=== PATIENT | female | born 1930 | race Caucasian/White ===

== ENCOUNTER 2016-07-30 11:59 | Emergency (ER) | payer MEDICARE ==
[2016-07-30 12:07] VITALS: PULSE 78
[2016-07-30] MEDS ORDERED: SODIUM CHLORIDE 0.9% 1,000 ML IV STA (12:56)
[2016-07-30 14:04] LABS: Anion Gap 11 mmol/L; Calcium 9.3 mg/dL (8.4-10.2); Carbon Dioxide 24 mmol/L (22-30); Chloride 102 mmol/L (98-107); Glucose 92 mg/dL (74-99); Non-African American GFR(MDRD) >60 (>60 ml/min/1.73 sqM); Sodium 137 mmol/L (137-145); Total Bilirubin 0.6 mg/dL (0.2-1.3); Total Protein 7.4 g/dL (6.3-8.2)
[2016-07-30 14:07] LABS: AST 43 U/L (14-36); Blood Urea Nitrogen 14 mg/dL (7-17); Potassium 4.4 mmol/L (3.5-5.1)
[2016-07-30 14:08] LABS: ALT 25 U/L (9-52); Alkaline Phosphatase 63 U/L (38-126)
--- NOTE | 2016-07-30 14:08 | XR ---
EXAMINATION TYPE: XR chest 2V DATE OF EXAM: 07/30/2016 2:03 PM COMPARISON: 05/03/2016 HISTORY: Cough TECHNIQUE: Frontal and lateral views of the chest are obtained. FINDINGS: There is no heart failure nor confluent pneumonic infiltrate. There is slight coarsening o f interstitial markings. There are no hilar masses. Costophrenic angles are clear. Thoracic aorta is atheromatous. Bony thorax is intact. IMPRESSION: No active cardiopulmonary disease. Minimal fibrotic changes. No adverse change compared to old exam.
[2016-07-30 14:11] LABS: Partial Thromboplastin Time 23.8 sec (22.0-30.0); Prothrombin Time 10.2 sec (9.0-12.0)
[2016-07-30 14:15] LABS: Basophils % (A) 0 %; CH 30.2; CHCM 32.9; Eosinophils % (A) 0 %; HCT 38.8 % (34.0-46.0); HDW 2.53; HGB 12.7 gm/dL (11.4-16.0); Luc # (Auto) 0.14; Luc % (Auto) 4; Lymphocytes # (A) 0.8 k/uL (1.0-4.8); Lymphocytes % (A) 22 %; MCH 30.1 pg (25.0-35.0); MCHC 32.6 g/dL (31.0-37.0); MCV 92.3 fL (80.0-100.0); Mean Platelet Volume 7.5; Monocytes # (A) 0.3 k/uL (0-1.0); Monocytes % (A) 8 %; Neutrophils # (A) 2.3 k/uL (1.3-7.7); Neutrophils % (A) 66 %; RBC 4.21 m/uL (3.80-5.40); WBC 3.5 k/uL (3.8-10.6); WBC (Perox) 3.55
[2016-07-30 14:17] LABS: Creatine Kinase 95 U/L (30-135)
[2016-07-30 14:30] LABS: Creatine Kinase MB 1.3 ng/mL (0.0-2.4); Troponin I <0.012 ng/mL (0.000-0.034)
--- NOTE | 2016-07-30 16:07 | ED ---
SOB HPI - General Chief Complaint: Shortness of Breath Stated Complaint: Diff breathing Time Seen by Provider: 07/30/16 12:32 Source: patient Mode of arrival: wheelchair Limitations: no limitations - History of Present Illness Initial Comments: He lives at a [facility] where it's not a quite full fledged [facility] is more like independent living with the some help with the medications as well as with the food she been coughing for the last 5 days she had a course of Zithromax she just finished that she is bringing up some phlegm she also had some diarrhea she is not the best historian considering she has a history of dementia her daughter is her review of system as well as history personnel. She denies any chest pain denies any pleuritic chest pain does have cough and does bring up some phlegm no abdominal pain no frequency urgency dysuria she did notice some diarrhea for the last few days he was on antibiotics recently - Related Data Home Medications Medication Instructions Recorded Confirmed Atorvastatin [Lipitor] 10 mg PO HS 05/02/16 07/30/16 diphenhydrAMINE [Benadryl] 25 mg PO HS 05/02/16 07/30/16 Acetaminophen Tab [Tylenol Tab] 650 mg PO Q6H PRN 07/30/16 07/30/16 Azithromycin [Zithromax Z-pack] See Taper PO DAILY 07/30/16 07/30/16 Clotrimazole/Betamethasone Dip 1 applic TOPICAL DAILY 07/30/16 07/30/16 [Lotrisone Cream] Fexofenadine HCl [Violette Allergy] 180 mg PO DAILY 07/30/16 07/30/16 Fluticasone Nasal [place] [Flonase 1 spray EA NOSTRIL DAILY 07/30/16 07/30/16 Nasal [place]] Omeprazole [PriLOSEC] 20 mg PO DAILY 07/30/16 07/30/16 Previous Rx's Medication Instructions Recorded Clopidogrel [Plavix] 75 mg PO DAILY tab 03/28/16 Oseltamivir [Tamiflu] 75 mg PO Q12HR #10 cap 07/30/16 Allergies Allergy/AdvReac Type Severity Reaction Status Date / Time codeine Allergy Unknown Verified 07/30/16 12:36 ibuprofen [From Motrin] Allergy Unknown Verified 07/30/16 12:36 Penicillins Allergy Unknown Verified 07/30/16 12:36 sulfamethoxazole AdvReac Nausea & Verified 07/30/16 12:36 [From Bactrim] Vomiting trimethoprim [From Bactrim] AdvReac Nausea & Verified 07/30/16 12:36 Vomiting Review of Systems ROS Statement: Those systems with pertinent positive or pertinent negative responses have been documented in the HPI. ROS Other: All systems not noted in ROS Statement are negative. Past Medical History Past Medical History: Coronary Artery Disease (CAD), Chest Pain / Angina, Dementia, GERD/Reflux, Hearing Disorder / Deafness, Hyperlipidemia, Hypertension , Memory Impairment Additional Past Medical History / Comment(s): [employer]- bilateral hearing aides History of Any Multi-Drug Resistant Organisms: None Reported Past Surgical History: Bladder Surgery, Cholecystectomy, Ear Surgery, Heart Catheterization With Stent, Hysterectomy, Joint Replacement Additional Past Surgical History / Comment(s): bony knee, right shoulder Past Anesthesia/Blood Transfusion Reactions: Previous Problems w/ Anesthesia Additional Past Anesthesia/Blood Transfusion Reaction / Comment(s): poor reaction during last surgery Date of Last Stent Placement:: 2005 Past Psychological History: No Psychological Hx Reported Smoking Status: Former smoker Past Alcohol Use History: None Reported Past Drug Use History: None Reported - Past Family History Mother Family Medical History: CVA/TIA Father Family Medical History: Myocardial Infarction ([place]) Brother(s) Family Medical History: Myocardial Infarction ([place]) General Exam - General Exam Comments Initial Comments: General: The patient is awake and alert, in no distress, and does not appear acutely ill. Skin: Skin is warm and dry and no rashes or lesions are noted. Eye: Pupils are equal, round and reactive to light, extra-ocular movements are intact; there is normal conjunctiva bilaterally. Ears, nose, mouth and throat: There are moist mucous membranes and no oral lesions. Neck: The neck is supple, there is no tenderness or JVD. Cardiovascular: There is a regular rate and rhythm. No murmur, rub or gallop is appreciated. Respiratory: To auscultation noticed some crackles at the bases bilateral Gastrointestinal: Soft, non-distended, non-tender abdomen without masses or organomegaly noted. There is no rebound or guarding present. Bowel sounds are unremarkable. Back: There is no tenderness to palpation in the midline. There is no obvious deformity. Musculoskeletal: Normal ROM, no tenderness, There is no pedal edema. There is no calf tenderness or swelling. No cords were appreciated. Neurological: CN II-XII intact, Cranial nerves III through XII are intact. There are no obvious motor or sensory deficits. Coordination appears grossly intact. Speech is normal. Psychiatric: Cooperative, appropriate mood & affect, normal judgment. Limitations: no limitations Course Vital Signs 07/30/16 12:05 Temperature 98.1 F Pulse Rate 78 Respiratory 20 Rate Blood Pressure 132/67 O2 Sat by Pulse 92 L Oximetry Him EKG showed normal sinus rhythm she is ventricular rate of 86 CT interval is 180 QRS duration is 82 QT/QTc is 388/464 of this EKG did not show any ST elevation or ST depression - Reevaluation(s) Reevaluation #1: 07/30/16 16:06 She was reassessed at 1600 with a discussed her labs with the family her, CBC, CMP, troponin, EKG, chest x-ray are normal she does have a influenza she be given Tamiflu 75 mg twice daily for next 5 days then she will follow-up with family doctor Medical Decision Making - Lab Data Result diagrams: 07/30/16 13:36 07/30/16 13:36 Lab Results 07/30/16 07/30/16 07/30/16 Range/Units 13:36 13:36 13:36 WBC 3.5 L (3.8-10.6) k/uL RBC 4.21 (3.80-5.40) m/uL Hgb 12.7 (11.4-16.0) gm/dL Hct 38.8 (34.0-46.0) % MCV 92.3 (80.0-100.0) fL MCH 30.1 (25.0-35.0) pg MCHC 32.6 (31.0-37.0) g/dL RDW 13.0 (11.5-15.5) % Plt Count 193 (150-450) k/uL Neutrophils % 66 % Lymphocytes % 22 % Monocytes % 8 % Eosinophils % 0 % Basophils % 0 % Neutrophils # 2.3 (1.3-7.7) k/uL Lymphocytes # 0.8 L (1.0-4.8) k/uL Monocytes # 0.3 (0-1.0) k/uL Eosinophils # 0.0 (0-0.7) k/uL Basophils # 0.0 (0-0.2) k/uL PT (9.0-12.0) sec INR (<1.1) APTT (22.0-30.0) sec Sodium 137 (137-145) mmol/L Potassium 4.4 (3.5-5.1) mmol/L Chloride 102 (98-107) mmol/L Carbon Dioxide 24 (22-30) mmol/L Anion Gap 11 mmol/L BUN 14 (7-17) mg/dL Creatinine 0.60 (0.52-1.04) mg/dL Est GFR (MDRD) Af Amer >60 (>60 ml/min/1.73 sqM) Est GFR (MDRD) Non-Af >60 (>60 ml/min/1.73 sqM) Glucose 92 (74-99) mg/dL Calcium 9.3 (8.4-10.2) mg/dL Total Bilirubin 0.6 (0.2-1.3) mg/dL AST 43 H (14-36) U/L ALT 25 (9-52) U/L Alkaline Phosphatase 63 (38-126) U/L Total Creatine Kinase 95 (30-135) U/L CK-MB (CK-2) 1.3 (0.0-2.4) ng/mL CK-MB (CK-2) Rel Index 1.4 Troponin I <0.012 (0.000-0.034) ng/mL Total Protein 7.4 (6.3-8.2) g/dL Albumin 4.4 (3.5-5.0) g/dL Influenza Type A RNA (Not Detectd) Influenza Type B (PCR) (Not Detectd) 07/30/16 07/30/16 Range/Units 13:36 13:36 WBC (3.8-10.6) k/uL RBC (3.80-5.40) m/uL Hgb (11.4-16.0) gm/dL Hct (34.0-46.0) % MCV (80.0-100.0) fL MCH (25.0-35.0) pg MCHC (31.0-37.0) g/dL RDW (11.5-15.5) % Plt Count (150-450) k/uL Neutrophils % % Lymphocytes % % Monocytes % % Eosinophils % % Basophils % % Neutrophils # (1.3-7.7) k/uL Lymphocytes # (1.0-4.8) k/uL Monocytes # (0-1.0) k/uL Eosinophils # (0-0.7) k/uL Basophils # (0-0.2) k/uL PT 10.2 (9.0-12.0) sec INR 1.0 (<1.1) APTT 23.8 (22.0-30.0) sec Sodium (137-145) mmol/L Potassium (3.5-5.1) mmol/L Chloride (98-107) mmol/L Carbon Dioxide (22-30) mmol/L Anion Gap mmol/L BUN (7-17) mg/dL Creatinine (0.52-1.04) mg/dL Est GFR (MDRD) Af Amer (>60 ml/min/1.73 sqM) Est GFR (MDRD) Non-Af (>60 ml/min/1.73 sqM) Glucose (74-99) mg/dL Calcium (8.4-10.2) mg/dL Total Bilirubin (0.2-1.3) mg/dL AST (14-36) U/L ALT (9-52) U/L Alkaline Phosphatase (38-126) U/L Total Creatine Kinase (30-135) U/L CK-MB (CK-2) (0.0-2.4) ng/mL CK-MB (CK-2) Rel Index Troponin I (0.000-0.034) ng/mL Total Protein (6.3-8.2) g/dL Albumin (3.5-5.0) g/dL Influenza Type A RNA Detected H (Not Detectd) Influenza Type B (PCR) Not Detected (Not Detectd) Disposition Clinical Impression: Influenza A Disposition: HOME SELF-CARE Condition: Good Instructions: Acute Bronchitis (ED) Prescriptions: Oseltamivir [Tamiflu] 75 mg PO Q12HR #10 cap - Out of Hospital Transfer - Req. Specs Out of Hospital Transfer - Requested Specifics: Other Non-Acute (With the family doctor)
[2016-07-30] MEDS ORDERED: OSELTAMIVIR 75 MG CAP PO STA (16:10)
[2016-07-30 16:41] VITALS: BP 124/59; RESP 18; TEMP 98.3
== END 2016-07-30 16:41 | disposition home or self-care (01) ==
LOC: EC 11:59
DX: J10.1 Influenza due to other identified influenza virus with other respiratory manifestations (principal); K21.9 Gastro-esophageal reflux disease without esophagitis; E78.5 Hyperlipidemia, unspecified; Z87.891 Personal history of nicotine dependence; Z88.5 Allergy status to narcotic agent; Z88.6 Allergy status to analgesic agent; Z88.0 Allergy status to penicillin; Z88.2 Allergy status to sulfonamides; Z79.51 Long term (current) use of inhaled steroids; Z79.899 Other long term (current) drug therapy
CPT/HCPCS: 36415; 71020; 80053; 82550; 82553; 84484; 85025; 85610; 85730; 87502; 93005; 99285

== ENCOUNTER 2016-09-01 14:43 | Observation (INO) | payer MEDICARE ==
--- NOTE | 2016-09-01 15:03 | ED ---
General Adult HPI - General Chief complaint: Chest Pain Stated complaint: CHEST PAIN Time Seen by Provider: 09/01/16 14:51 Source: patient, EMS, RN notes reviewed, old records reviewed Mode of arrival: EMS Limitations: no limitations - History of Present Illness Initial comments: This is a 85-year-old female the ER for evaluation of chest pain. Patient having anterior chest pain. Patient did take nitro and it didn't seem to help. Patient has no nausea vomiting no fevers no cough or congestion no recent travel history or sick contacts. Patient's does have history of NH and CAD the multiple cardiac comorbidities - Related Data Home Medications Medication Instructions Recorded Confirmed Atorvastatin [Lipitor] 10 mg PO HS 05/02/16 09/01/16 diphenhydrAMINE [Benadryl] 25 mg PO HS 05/02/16 09/01/16 Fexofenadine HCl [Violette Allergy] 180 mg PO DAILY 07/30/16 09/01/16 Fluticasone Nasal [place] [Flonase 1 spray EA NOSTRIL DAILY 07/30/16 09/01/16 Nasal [place]] Omeprazole [PriLOSEC] 20 mg PO DAILY 07/30/16 09/01/16 Desloratadine 5 mg PO DAILY 09/01/16 09/01/16 Previous Rx's Medication Instructions Recorded Clopidogrel [Plavix] 75 mg PO DAILY tab 03/28/16 Allergies Allergy/AdvReac Type Severity Reaction Status Date / Time codeine Allergy Unknown Verified 09/01/16 15:06 ibuprofen [From Motrin] Allergy Unknown Verified 09/01/16 15:06 Penicillins Allergy Unknown Verified 09/01/16 15:06 sulfamethoxazole AdvReac Nausea & Verified 09/01/16 15:06 [From Bactrim] Vomiting trimethoprim [From Bactrim] AdvReac Nausea & Verified 09/01/16 15:06 Vomiting Review of Systems ROS Statement: Those systems with pertinent positive or pertinent negative responses have been documented in the HPI. ROS Other: All systems not noted in ROS Statement are negative. Past Medical History Past Medical History: Coronary Artery Disease (CAD), Chest Pain / Angina, Dementia, GERD/Reflux, Hearing Disorder / Deafness, Hyperlipidemia, Hypertension , Memory Impairment Additional Past Medical History / Comment(s): [place]- bilateral hearing aides History of Any Multi-Drug Resistant Organisms: None Reported Past Surgical History: Bladder Surgery, Cholecystectomy, Ear Surgery, Heart Catheterization With Stent, Hysterectomy, Joint Replacement Additional Past Surgical History / Comment(s): bony knee, right shoulder Past Anesthesia/Blood Transfusion Reactions: Previous Problems w/ Anesthesia Additional Past Anesthesia/Blood Transfusion Reaction / Comment(s): poor reaction during last surgery Date of Last Stent Placement:: 2005 Past Psychological History: No Psychological Hx Reported Smoking Status: Former smoker Past Alcohol Use History: None Reported Past Drug Use History: None Reported - Past Family History Mother Family Medical History: CVA/TIA Father Family Medical History: Myocardial Infarction ([place]) Brother(s) Family Medical History: Myocardial Infarction ([place]) General Exam Limitations: no limitations General appearance: alert, in no apparent distress Head exam: Present: atraumatic, normocephalic, normal inspection Eye exam: Present: normal appearance, PERRL, EOMI. Absent: scleral icterus, conjunctival injection, periorbital swelling ENT exam: Present: normal exam, mucous membranes moist Neck exam: Present: normal inspection. Absent: tenderness, meningismus, lymphadenopathy Respiratory exam: Present: normal lung sounds bilaterally. Absent: respiratory distress, wheezes, rales, rhonchi, stridor Cardiovascular Exam: Present: regular rate, normal rhythm, normal heart sounds. Absent: systolic murmur, diastolic murmur, rubs, gallop, clicks GI/Abdominal exam: Present: soft, normal bowel sounds. Absent: distended, tenderness, guarding, rebound, rigid Extremities exam: Present: normal inspection, full ROM, normal capillary refill. Absent: tenderness, pedal edema, joint swelling, calf tenderness Back exam: Present: normal inspection Neurological exam: Present: alert, oriented X3, CN II-XII intact Psychiatric exam: Present: normal affect, normal mood Skin exam: Present: warm, dry, intact, normal color. Absent: rash Course Vital Signs 09/01/16 14:45 Temperature 97.8 F Pulse Rate 102 H Respiratory 18 Rate Blood Pressure 177/81 O2 Sat by Pulse 98 Oximetry - Reevaluation(s) Reevaluation #1: 09/01/16 16:06 Patient's chest pain seems to wax and wane. At this time she is chest pain-free EKG Findings - EKG Comments: EKG Findings:: EKG shows normal sinus rhythm rate of 97, AR 144, QRS 86, QTc 467 Medical Decision Making - Medical Decision Making 85 female to the ER with history of myocardial infarction and coronary artery disease coming in with chest pain. Patient with severe anterior chest pain, not feeling well. Patient did take nitro which did help, patient will be admitted for anticoagulation cardiology observation, telemetry serial troponins - Lab Data Result diagrams: 09/01/16 14:45 09/01/16 14:45 Lab Results 09/01/16 09/01/16 09/01/16 Range/Units 14:45 14:45 14:45 WBC 10.7 H (3.8-10.6) k/uL RBC 4.01 (3.80-5.40) m/uL Hgb 11.9 (11.4-16.0) gm/dL Hct 37.5 (34.0-46.0) % MCV 93.7 (80.0-100.0) fL MCH 29.7 (25.0-35.0) pg MCHC 31.7 (31.0-37.0) g/dL RDW 14.1 (11.5-15.5) % Plt Count 299 (150-450) k/uL Neutrophils % 69 % Lymphocytes % 21 % Monocytes % 6 % Eosinophils % 1 % Basophils % 1 % Neutrophils # 7.4 (1.3-7.7) k/uL Lymphocytes # 2.2 (1.0-4.8) k/uL Monocytes # 0.6 (0-1.0) k/uL Eosinophils # 0.1 (0-0.7) k/uL Basophils # 0.1 (0-0.2) k/uL PT (9.0-12.0) sec INR (<1.1) APTT (22.0-30.0) sec Sodium 139 (137-145) mmol/L Potassium 3.8 (3.5-5.1) mmol/L Chloride 102 (98-107) mmol/L Carbon Dioxide 25 (22-30) mmol/L Anion Gap 12 mmol/L BUN 20 H (7-17) mg/dL Creatinine 0.75 (0.52-1.04) mg/dL Est GFR (MDRD) Af Amer >60 (>60 ml/min/1.73 sqM) Est GFR (MDRD) Non-Af >60 (>60 ml/min/1.73 sqM) Glucose 113 H (74-99) mg/dL Calcium 9.4 (8.4-10.2) mg/dL Magnesium 1.7 (1.6-2.3) mg/dL Total Bilirubin 0.5 (0.2-1.3) mg/dL AST 27 (14-36) U/L ALT 26 (9-52) U/L Alkaline Phosphatase 84 (38-126) U/L Total Creatine Kinase 42 (30-135) U/L CK-MB (CK-2) 0.7 (0.0-2.4) ng/mL CK-MB (CK-2) Rel Index 1.7 Troponin I <0.012 (0.000-0.034) ng/mL Total Protein 7.3 (6.3-8.2) g/dL Albumin 4.1 (3.5-5.0) g/dL Lipase 236 (23-300) U/L 09/01/16 Range/Units 14:45 WBC (3.8-10.6) k/uL RBC (3.80-5.40) m/uL Hgb (11.4-16.0) gm/dL Hct (34.0-46.0) % MCV (80.0-100.0) fL MCH (25.0-35.0) pg MCHC (31.0-37.0) g/dL RDW (11.5-15.5) % Plt Count (150-450) k/uL Neutrophils % % Lymphocytes % % Monocytes % % Eosinophils % % Basophils % % Neutrophils # (1.3-7.7) k/uL Lymphocytes # (1.0-4.8) k/uL Monocytes # (0-1.0) k/uL Eosinophils # (0-0.7) k/uL Basophils # (0-0.2) k/uL PT 10.3 (9.0-12.0) sec INR 1.0 (<1.1) APTT 23.4 (22.0-30.0) sec Sodium (137-145) mmol/L Potassium (3.5-5.1) mmol/L Chloride (98-107) mmol/L Carbon Dioxide (22-30) mmol/L Anion Gap mmol/L BUN (7-17) mg/dL Creatinine (0.52-1.04) mg/dL Est GFR (MDRD) Af Amer (>60 ml/min/1.73 sqM) Est GFR (MDRD) Non-Af (>60 ml/min/1.73 sqM) Glucose (74-99) mg/dL Calcium (8.4-10.2) mg/dL Magnesium (1.6-2.3) mg/dL Total Bilirubin (0.2-1.3) mg/dL AST (14-36) U/L ALT (9-52) U/L Alkaline Phosphatase (38-126) U/L Total Creatine Kinase (30-135) U/L CK-MB (CK-2) (0.0-2.4) ng/mL CK-MB (CK-2) Rel Index Troponin I (0.000-0.034) ng/mL Total Protein (6.3-8.2) g/dL Albumin (3.5-5.0) g/dL Lipase (23-300) U/L Critical Care Time Critical Care Time: Yes Total Critical Care Time: 31 Disposition Clinical Impression: Chest pain Disposition: ADMITTED IP TO THIS HOSP Condition: Undetermined Instructions: Chest Pain (ED) Referrals: Matt Singer DO [Primary Care Provider] - 1-2 days
[2016-09-01 15:17] LABS: Basophils # (A) 0.1 k/uL (0-0.2); Basophils % (A) 1 %; CHCM 32.1; Eosinophils # (A) 0.1 k/uL (0-0.7); Eosinophils % (A) 1 %; HCT 37.5 % (34.0-46.0); HDW 2.43; HGB 11.9 gm/dL (11.4-16.0); Luc # (Auto) 0.37; Luc % (Auto) 3; Lymphocytes # (A) 2.2 k/uL (1.0-4.8); Lymphocytes % (A) 21 %; MCH 29.7 pg (25.0-35.0); MCHC 31.7 g/dL (31.0-37.0); MCV 93.7 fL (80.0-100.0); Monocytes # (A) 0.6 k/uL (0-1.0); Monocytes % (A) 6 %; Neutrophils # (A) 7.4 k/uL (1.3-7.7); Neutrophils % (A) 69 %; RBC 4.01 m/uL (3.80-5.40); RDW 14.1 % (11.5-15.5); WBC 10.7 k/uL (3.8-10.6); WBC (Perox) 10.85
[2016-09-01 15:24] LABS: ALT 26 U/L (9-52); AST 27 U/L (14-36); Alkaline Phosphatase 84 U/L (38-126); Anion Gap 12 mmol/L; Blood Urea Nitrogen 20 mg/dL (7-17); Calcium 9.4 mg/dL (8.4-10.2); Carbon Dioxide 25 mmol/L (22-30); Chloride 102 mmol/L (98-107); Glucose 113 mg/dL (74-99); Magnesium 1.7 mg/dL (1.6-2.3); Non-African American GFR(MDRD) >60 (>60 ml/min/1.73 sqM); Potassium 3.8 mmol/L (3.5-5.1); Sodium 139 mmol/L (137-145); Total Bilirubin 0.5 mg/dL (0.2-1.3); Total Protein 7.3 g/dL (6.3-8.2)
[2016-09-01 15:25] LABS: Partial Thromboplastin Time 23.4 sec (22.0-30.0); Prothrombin Time 10.3 sec (9.0-12.0)
[2016-09-01 15:44] LABS: Creatine Kinase 42 U/L (30-135)
[2016-09-01 15:58] LABS: Creatine Kinase MB 0.7 ng/mL (0.0-2.4); Troponin I <0.012 ng/mL (0.000-0.034)
[2016-09-01] MEDS ORDERED: ASPIRIN 81 MG CHEW PO STA (15:59)
[2016-09-01] MEDS ORDERED: MORPHINE SULFATE 4 MG/ML SYRINGE IV PRN (15:59)
[2016-09-01] MEDS ORDERED: NITROGLYCERIN SL TABS 0.4 MG TAB SUBLINGUAL PRN (15:59)
[2016-09-01] MEDS ORDERED: HEPARIN SODIUM,PORCINE 5,000 UNIT/ML 1 ML VIAL IV PRN (15:59)
[2016-09-01] MEDS ORDERED: HEPARIN SODIUM,PORCINE 5,000 UNIT/ML 1 ML VIAL IV ONE (15:59)
[2016-09-01] MEDS ORDERED: HEPARIN SODIUM,PORCINE/D5W PMX 25,000 UNIT in DEXTROSE/WATER 1 500ML.BAG IV SCH (16:00)
[2016-09-01 18:19] VITALS: BMI 26.6
--- NOTE | 2016-09-01 18:25 | XR ---
EXAMINATION TYPE: XR chest 2V DATE OF EXAM: 09/01/2016 6:15 PM COMPARISON: 07/30/2016 HISTORY: Persistent cough TECHNIQUE: Frontal and lateral views of the chest are obtained. FINDINGS: There is no focal air space opacity, pleural effusion, or pneumothorax seen. There is rede monstration of coarse interstitial lung markings, chronic in nature. The cardiac silhouette size is w ithin normal limits. The osseous structures are intact. IMPRESSION: No change from the prior exam. No acute cardiopulmonary process.
[2016-09-01] MEDS: ATORVASTATIN 10 MG TAB PO SCH (21:16)
[2016-09-01] MEDS: diphenhydrAMINE 25 MG CAP PO SCH (21:16)
[2016-09-01] MEDS: LEVOFLOXACIN 500MG-D5W PMX 500 MG in DEXTROSE/WATER 1 100ML.BAG IVPB SCH (21:32)
[2016-09-01 21:51] LABS: Partial Thromboplastin Time 69.5 sec (22.0-30.0)
[2016-09-01 21:53] LABS: Creatine Kinase 41 U/L (30-135)
[2016-09-01 22:05] LABS: Creatine Kinase MB 0.7 ng/mL (0.0-2.4); Troponin I <0.012 ng/mL (0.000-0.034)
[2016-09-02 03:22] LABS: Mean Platelet Volume 7.1
[2016-09-02 03:46] LABS: Creatine Kinase 68 U/L (30-135)
[2016-09-02 04:00] LABS: Creatine Kinase MB 0.9 ng/mL (0.0-2.4); Troponin I <0.012 ng/mL (0.000-0.034)
[2016-09-02 04:01] VITALS: RESP 16
[2016-09-02 04:22] LABS: Cholesterol 113 mg/dL (<200); HDL Cholesterol 56 mg/dL (40-60); Triglycerides 67 mg/dL (<150)
--- NOTE | 2016-09-02 07:02 | P.CRDCN ---
History of Present Illness Consult date: 09/02/16 Chief complaint: Chest pain History of present illness: This is a pleasant 85-year-old female patient with a past medical history significant for coronary artery disease and prior stenting in 2005 with unknown details at this point, hypertension, dyslipidemia, and underlying dementia, presented to the emergency room complaining of chest discomfort. The patient describes intermittent episodes of chest discomfort, she was unable to tell me what kind of discomfort, and it seems to be of variable duration. Somewhat the patient is a poor historian. No shortness of breath associated with it. She has been experiencing some cough and according to her she was diagnosed with a pneumonia recently. The EKG showed sinus mechanism without any significant ST or T-wave abnormalities. The cardiac enzymes were checked and came in to be overall unremarkable. Overall and in view of the patient age and underlying dementia as well as limited functional capacity I would consider maximize medical treatment. The patient is on antiplatelet and statin will continue that. I would add Imdur to the current medical treatment. I am going to DC the heparin. Past Medical History Past Medical History: Coronary Artery Disease (CAD), Chest Pain / Angina, Dementia, GERD/Reflux, Hearing Disorder / Deafness, Hyperlipidemia, Hypertension , Memory Impairment Additional Past Medical History / Comment(s): COCOPAH- bilateral hearing aides History of Any Multi-Drug Resistant Organisms: None Reported Past Surgical History: Bladder Surgery, Cholecystectomy, Ear Surgery, Heart Catheterization With Stent, Hysterectomy, Joint Replacement Additional Past Surgical History / Comment(s): bony knee, right shoulder Past Anesthesia/Blood Transfusion Reactions: Previous Problems w/ Anesthesia Additional Past Anesthesia/Blood Transfusion Reaction / Comment(s): poor reaction during last surgery Date of Last Stent Placement:: 2005 Past Psychological History: No Psychological Hx Reported Smoking Status: Former smoker Past Alcohol Use History: None Reported Past Drug Use History: None Reported - Past Family History Mother Family Medical History: CVA/TIA Father Family Medical History: Myocardial Infarction (AR) Brother(s) Family Medical History: Myocardial Infarction (AR) Sister(s) Additional Family Medical History / Comment(s): heart issues Medications and Allergies Home Medications Medication Instructions Recorded Confirmed Type Atorvastatin [Lipitor] 10 mg PO HS 05/02/16 09/01/16 History diphenhydrAMINE [Benadryl] 25 mg PO HS 05/02/16 09/01/16 History Fexofenadine HCl [Violette Allergy] 180 mg PO DAILY 07/30/16 09/01/16 History Fluticasone Nasal [place] [Flonase 1 spray EA NOSTRIL DAILY 07/30/16 09/01/16 History Nasal [place]] Omeprazole [PriLOSEC] 20 mg PO DAILY 07/30/16 09/01/16 History Atorvastatin [Lipitor] 10 mg PO HS 09/01/16 09/01/16 History Desloratadine 5 mg PO DAILY 09/01/16 09/01/16 History Allergies Allergy/AdvReac Type Severity Reaction Status Date / Time codeine Allergy Unknown Verified 09/01/16 15:06 ibuprofen [From Motrin] Allergy Unknown Verified 09/01/16 15:06 Penicillins Allergy Unknown Verified 09/01/16 15:06 sulfamethoxazole AdvReac Nausea & Verified 09/01/16 15:06 [From Bactrim] Vomiting trimethoprim [From Bactrim] AdvReac Nausea & Verified 09/01/16 15:06 Vomiting Physical Exam Vitals: Vital Signs Temp Pulse Pulse Resp BP BP Pulse Ox 09/02/16 04:00 97.2 F L 80 16 149/76 95 09/02/16 00:00 82 18 09/01/16 23:44 82 18 126/74 96 09/01/16 20:00 98 F 84 18 143/66 94 L 09/01/16 17:35 97.5 F L 88 18 157/76 98 09/01/16 16:00 98.0 F 86 20 141/64 97 Intake and Output 09/01/16 09/01/16 09/02/16 14:59 22:59 06:59 Intake Total 160 110 Balance 160 110 Intake: Intake, IV Titration 160 110 Amount Heparin Sodium,Porcine/ 60 110 D5w Pmx 25,000 unit In Dextrose/Water 1 500ml. bag @ 12 UNITS/KG/HR 14. 15 mls/hr IV .Q24H [facility] Rx #:[id number] Levofloxacin 500Mg-D5w 100 Pmx 500 mg In Dextrose/ Water 1 100ml.bag @ 100 mls/hr IVPB Q24H [facility] Rx#: [id number] Other: Voiding Method Toilet # Voids 1 4 Weight 59.7 kg Patient Weight 09/02/16 06:59 Weight 59.7 kg - Constitutional General appearance: no acute distress - Respiratory Respiratory: bilateral: CTA - Cardiovascular Rhythm: regular Heart sounds: normal: S1, S2 Abnormal Heart Sounds: systolic murmur Results 09/02/16 03:12 09/01/16 14:45 Cardiac Enzymes 09/01/16 09/02/16 Range/Units Unknown 03:12 CK-MB (CK-2) 0.7 0.9 (0.0-2.4) ng/mL Troponin I <0.012 <0.012 (0.000-0.034) ng/mL Coagulation 09/01/16 09/02/16 Range/Units Unknown 03:12 APTT 69.5 H 50.8 H (22.0-30.0) sec Lipids 09/02/16 Range/Units 03:12 Triglycerides 67 (<150) mg/dL Cholesterol 113 (<200) mg/dL HDL Cholesterol 56 (40-60) mg/dL CBC 09/02/16 Range/Units 03:12 Plt Count 252 (150-450) k/uL Current Medications Generic Name Dose Route Start Last Admin Trade Name Freq PRN Reason Stop Dose Admin Aspirin 325 mg 09/02/16 09:00 Aspirin PO DAILY [facility] Atorvastatin Calcium 10 mg 09/01/16 21:00 09/01/16 21:16 Lipitor PO 10 mg HS [facility] Administration Clopidogrel Bisulfate 75 mg 09/02/16 09:00 Plavix PO DAILY [facility] Diphenhydramine HCl 25 mg 09/01/16 21:00 09/01/16 21:16 Benadryl PO 25 mg HS [facility] Administration Fluticasone Propionate 1 spray 09/02/16 09:00 Flonase Nasal [place] EA NOSTRIL DAILY [facility] Heparin Sodium (Porcine) 0 unit 09/01/16 15:59 Heparin IV Q6HR PRN Low PTT Protocol Heparin Sodium/Dextrose 25,000 500 mls @ 14.15 mls/hr 09/01/16 16:00 16:31 unit/ IV Solution IV 12 units/kg/hr .Q24H [facility] 14.15 mls/hr Protocol Administration 12 UNITS/KG/HR Levofloxacin 500 mg/ IV 100 mls @ 100 mls/hr 09/01/16 19:30 09/01/16 21:32 Solution IVPB 100 mls/hr Q24H [facility] Administration Loratadine 10 mg 09/02/16 09:00 Claritin PO DAILY [facility] Morphine Sulfate 4 mg 09/01/16 15:59 Morphine Sulfate (Inj) IV Q4HR PRN Chest Pain Nitroglycerin 0.4 mg 09/01/16 15:59 Nitrostat SUBLINGUAL Q5M PRN Chest Pain Pantoprazole Sodium 40 mg 09/02/16 07:30 Protonix PO AC-BRKFST [facility] Intake and Output 09/01/16 09/01/16 09/02/16 14:59 22:59 06:59 Intake Total 160 110 Balance 160 110 Intake: Intake, IV Titration 160 110 Amount Heparin Sodium,Porcine/ 60 110 D5w Pmx 25,000 unit In Dextrose/Water 1 500ml. bag @ 12 UNITS/KG/HR 14. 15 mls/hr IV .Q24H [facility] Rx #:[id number] Levofloxacin 500Mg-D5w 100 Pmx 500 mg In Dextrose/ Water 1 100ml.bag @ 100 mls/hr IVPB Q24H [facility] Rx#: [id number] Other: Voiding Method Toilet # Voids 1 4 Weight 59.7 kg Patient Weight 09/02/16 06:59 Weight 59.7 kg 09/02/16 03:12 Assessment and Plan Plan: Assessment #1 intermittent episodes of atypical chest discomfort #2 known CAD and prior stenting with unknown details #3 multiple risk factors for CAD #4 underlying dementia Plan #1 continue the current medical treatment #2 DC heparin #3 add Imdur to the current medical treatment #4 follow-up with the patient
--- NOTE | 2016-09-02 08:12 | HP ---
DATE OF ADMISSION: CHIEF COMPLAINT: An 85-year-old white female with chest pain. HISTORY OF PRESENT ILLNESS: This 85-year-old white female admitted with chest pain anterior in nature. She has had nitroglycerin, which did not seem to help. She had no nausea, vomiting. No fever. She has had some cough and congestion. The chest pain is worse when she coughs and that is when she gets the chest pain. This is most likely pleuritic in nature. She does have a history of NV and coronary artery disease in the past. HOME MEDICATIONS: Lipitor, Benadryl, Violette, Flonase, Prilosec, loratadine, Plavix. ALLERGIES: CODEINE, IBUPROFEN, PENICILLIN, BACTRIM. REVIEW OF SYSTEMS: A 14-point review of systems is negative except for HPI. PAST MEDICAL HISTORY: Coronary artery disease, chest pain, angina, dementia, GERD reflux, deafness, dyslipidemia, hypertension, memory impairment, bilateral hearing aids. SURGERY: Bladder surgery, cholecystectomy, ear surgery, heart catheterization and stent, hysterectomy, joint replacement, bilateral knees and right shoulder repair. Former smoker. No alcohol. No illicit drugs. FAMILY HISTORY: Mother with CVA, TIA. Father with myocardial infarction. Brother myocardial infarction. PHYSICAL EXAM: Thin, cachectic. MUSCULOSKELETAL: Has lordotic kyphotic spine. LUNGS: Show scattered wheeze, scattered rhonchi. HEMATOLOGIC: Negative Homans. PSYCHIATRIC: Fair mood and affect. NEUROLOGIC: Alert and oriented x3. OPHTHALMOLOGIC: Pupils equal, round and react to light and accommodation. VASCULAR: Normal dorsalis pedis, posterior tibial and radial pulse. ENT: External ear canals within normal limits. GI: Soft, nontender. No chest wall tenderness. EKG sinus rhythm. White count 10.7, hemoglobin 11.9, sodium 139, potassium 3.8, creatinine ( ) is greater than 60. ASSESSMENT: Atypical chest pain, pleuritic in nature. I suspect costochondritis versus tracheobronchitis as she has been coughing up green-yellow phlegm. IV Levaquin is being given overnight. When she is ruled out for an NV she will be sent home with oral antibiotics for her tracheobronchitis/pneumonia, to follow up as an outpatient.
[2016-09-02] MEDS: LORATADINE 10 MG TAB PO SCH (08:56)
[2016-09-02] MEDS: CLOPIDOGREL 75 MG TAB PO SCH (08:56)
[2016-09-02] MEDS: ASPIRIN 325 MG TAB PO SCH (08:56)
[2016-09-02] MEDS: PANTOPRAZOLE 40 MG TABLET PO SCH (08:56)
[2016-09-02] MEDS: ISOSORBIDE MONONITRATE ER 15 MG TAB PO SCH (08:56)
[2016-09-02] MEDS: FLUTICASONE 50MCG/SPRAY NASAL 16GM EA NOSTRIL SCH (08:59)
[2016-09-02] MEDS ORDERED: NON-FORMULARY DRUG (Fexofenadine Hcl [Allegra Allergy] 180 MG) PO SCH (09:00)
[2016-09-02] MEDS: ACETAMINOPHEN TAB 500 MG TAB PO PRN (14:25)
[2016-09-02] MEDS ORDERED: RX INFO: IV CONTRAST WAS GIVEN 1 EACH MISC MISCELLANE PRN (15:14)
--- NOTE | 2016-09-02 17:37 | PN ---
SUBJECTIVE: An 85-year-old white female. Cardiology is going to order an echo and keep her one more day due to history of heart disease. She is having no chest pain or shortness of breath overnight. CARDIOVASCULAR: S1, S2. LUNGS: Transmitted upper airway sounds. HEMATOLOGIC: Negative Homans. PSYCHIATRIC: Fair mood and affect. ASSESSMENT: 1. Atypical chest discomfort. 2. Coronary artery disease with stents. 3. Underlying dementia. They added Imdur. They are going to follow up tomorrow after an echo and watch her overnight, do a CT of the chest today.
--- NOTE | 2016-09-02 17:50 | CT ---
EXAMINATION TYPE: CT chest w con DATE OF EXAM: 09/02/2016 4:34 PM COMPARISON: CTA chest November 13, 2015. Chest x-ray from yesterday. HISTORY: Chest pain after coughing. CT DLP: 170.90 mGycm. Automated Exposure Control for Dose Reduction was Utilized. TECHNIQUE: CT scan of the thorax is performed following with IV Contrast, patient injected with 100 mL of Omnipaque 300. FINDINGS: LUNGS: Mild underlying emphysematous change is felt present. There is mild central ground grass opaci ty bilaterally felt to reflect edema. No pleural effusion or pneumothorax is seen. There is stable 3 mm nodule in the right midlung anterolateral aspect on axial image 27. There is stable 3 mm nodule po steriorly in left upper lobe on axial image 7. There is linear atelectasis or scarring in both lung b ases near diaphragm. No suspicious consolidation is present. No pleural effusion or pneumothorax is s een. MEDIASTINUM: There are no greater than 1 cm hilar or mediastinal lymph nodes. No pericardial effusi on is seen. Heart size is mildly enlarged. There is coronary artery stent in the proximal RCA felt p resent. OTHER: Cholecystectomy clips are redemonstrated. Exaggerated thoracic kyphosis is seen. Prominent ext rarenal pelvis on left is redemonstrated. IMPRESSION: Suspect CHF exacerbation as there is mild cardiomegaly with mild central alveolar edema f elt present. Clinical correlation advised. No suspicious focal infiltrate is seen.
[2016-09-02] MEDS: LEVOFLOXACIN 500MG-D5W PMX 500 MG in DEXTROSE/WATER 1 100ML.BAG IVPB SCH (19:33)
[2016-09-02] MEDS: ATORVASTATIN 10 MG TAB PO SCH (23:22)
[2016-09-02] MEDS: diphenhydrAMINE 25 MG CAP PO SCH (23:22)
[2016-09-03] MEDS: ACETAMINOPHEN TAB 500 MG TAB PO PRN (02:59)
[2016-09-03 07:28] LABS: Mean Platelet Volume 6.8
--- NOTE | 2016-09-03 07:41 | P.PN ---
Progress Note - Text This is a pleasant 85-year-old female patient with a past medical history significant for coronary artery disease and prior stenting in 2005 with unknown details at this point, hypertension, dyslipidemia, and underlying dementia, presented to the emergency room complaining of chest discomfort. The patient describes intermittent episodes of chest discomfort, she was unable to tell me what kind of discomfort, and it seems to be of variable duration. Somewhat the patient is a poor historian. No shortness of breath associated with it. She has been experiencing some cough and according to her she was diagnosed with a pneumonia recently. The EKG showed sinus mechanism without any significant ST or T-wave abnormalities. The cardiac enzymes were checked and came in to be overall unremarkable. I added Imdur to the current medical treatment yesterday. Over the last 24 hours, she was pain-free and did not experience any chest pain or discomfort. From the cardiovascular standpoint of view, the patient can be discharged home.
[2016-09-03] MEDS: ISOSORBIDE MONONITRATE ER 15 MG TAB PO SCH (08:44)
[2016-09-03] MEDS: FLUTICASONE 50MCG/SPRAY NASAL 16GM EA NOSTRIL SCH (08:44)
[2016-09-03] MEDS: CLOPIDOGREL 75 MG TAB PO SCH (08:44)
[2016-09-03] MEDS: LORATADINE 10 MG TAB PO SCH (08:44)
[2016-09-03] MEDS: PANTOPRAZOLE 40 MG TABLET PO SCH (08:44)
[2016-09-03] MEDS: ASPIRIN 325 MG TAB PO SCH (08:44)
[2016-09-03 12:15] VITALS: BP 123/68; PULSE 89; TEMP 97.9
--- NOTE | 2016-09-03 14:20 | DS ---
DATE OF ADMISSION: 09/01/2016 DATE OF DISCHARGE: 09/03/2016 DISCHARGE DIAGNOSES: 1. Atypical chest pain. 2. Coronary artery stenting. 3. Hypertension. 4. Dyslipidemia. 5. Osteoporosis. 6. Dementia. CONDITION: Stable. PROGNOSIS: Guarded. Ambulate as tolerated. MEDICATIONS: 1. Aspirin 325 mg daily. 2. Lipitor 10 daily. 3. Plavix 75 daily. 4. Flonase nasal spray daily. 5. Imdur 15 mg daily. 6. Levaquin 500 mg IV daily. 7. Loratadine 10 mg daily. 8. Imdur 30 mg daily. 9. Nitrostat sublingual 0.4 mg p.r.n. 10. Protonix 40 mg daily. HOSPITAL COURSE OF EVENTS: This is an 85-year-old white female who was admitted with atypical chest pain. Had CT scan of the chest is negative. Myocardial infarction was ruled out. Cardiology started back on Imdur. At this time she was discharged home as her severe cardiac arrhythmias, heart disease was ruled out.
== END 2016-09-03 13:10 | disposition home or self-care (01) ==
LOC: EC 14:43 → 3OBS 15:59 → 3SUR 19:00
PROVIDERS: ADMIT Family Medicine; ATTEND Family Medicine
DX: R07.89 Other chest pain (principal); I25.10 Atherosclerotic heart disease of native coronary artery without angina pectoris; I25.2 Old myocardial infarction; Z79.02 Long term (current) use of antithrombotics/antiplatelets; Z79.51 Long term (current) use of inhaled steroids; Z79.899 Other long term (current) drug therapy; Z88.6 Allergy status to analgesic agent; Z88.5 Allergy status to narcotic agent; Z88.0 Allergy status to penicillin; Z88.2 Allergy status to sulfonamides; F03.90 Unspecified dementia, unspecified severity, without behavioral disturbance, psychotic disturbance, mood disturbance, and anxiety; K21.9 Gastro-esophageal reflux disease without esophagitis; H91.90 Unspecified hearing loss, unspecified ear; E78.5 Hyperlipidemia, unspecified; I10 Essential (primary) hypertension; Z90.49 Acquired absence of other specified parts of digestive tract; Z95.5 Presence of coronary angioplasty implant and graft; Z90.710 Acquired absence of both cervix and uterus; Z87.891 Personal history of nicotine dependence; Z82.49 Family history of ischemic heart disease and other diseases of the circulatory system; Z82.3 Family history of stroke; M81.0 Age-related osteoporosis without current pathological fracture
CPT/HCPCS: 96365 ×2; 96376 ×2; 99291 ×2; 36415; 93005; 85379; 80061; 80053; 82550 ×2; 82553 ×2; 83690; 83735; 84484 ×2; 85025; 85049 ×2; 85610; 85730 ×3; 71020; 71260; G0378 ×3; J1644 ×2; J1956 ×2; Q9967; 96366; 96368

== ENCOUNTER → 2017-10-23 | Outpatient (CLI) | payer MEDICARE ==
--- NOTE | 2017-10-23 13:48 | CT ---
EXAMINATION TYPE: CT abdomen pelvis wo con DATE OF EXAM: 10/23/2017 COMPARISON: 09/02/2016 and 04/25/1716 HISTORY: Mid Abdominal pain CT DLP: 266.9 mGycm Automated exposure control for dose reduction was used. TECHNIQUE: Helical acquisition of images was performed from the lung bases through the pelvis. FINDINGS: Lack of intravenous and oral contrast limits evaluation of both the hollow and solid viscer a. LUNG BASES: Mild patchy bibasilar dependent, less opacities may relate to atelectasis, infectious or inflammatory etiology, or fluid overload. Fluid overload is favored given findings on the prior CT ch est of 09/02/2016. There is partial visualization of coronary artery calcifications. LIVER/GB: Unenhanced unremarkable morphology. Surgical absence of the gallbladder. PANCREAS: No pancreatic ductal dilatation. SPLEEN: No splenomegaly. Unremarkable morphology. ADRENALS: No nodularity or thickening. KIDNEYS: There is no evidence of hydronephrosis or nephrolithiasis. Bilateral extrarenal pelvises see s are seen, left greater than right, normal variant. No cortical renal thinning is noted. No hydroure ter. FREE AIR: No free air is visualized ADENOPATHY: No greater than 1 cm short axis lymph node are seen within the abdomen or pelvis. REPRODUCTIVE ORGANS: Uterus is either surgically absent or significantly atrophic. URINARY BLADDER: Incompletely distended and incompletely evaluated. OSSEOUS STRUCTURES: There is grade 1 anterolisthesis of L4 on L5, likely on a degenerative basis. Mi ld to moderate multilevel degenerative changes of the spine are noted. Moderate femoral acetabular ar thropathy and sacroiliac joint degenerative changes are also seen. BOWEL: Moderate amount retained colonic stool limits evaluation of the bowel as does lack of oral co ntrast. No dilated large or small bowel is seen. No evidence of obstruction. OTHER: There is a small fat filled umbilical hernia with a 9 mm neck. Abdominal aorta is of normal co urse and caliber with moderate calcific atheromatous changes. IMPRESSION: 1. NO EVIDENCE OF HYDRONEPHROSIS. BILATERAL, LEFT GREATER THAN RIGHT, NORMAL VARIANT EXTRARENAL PELVI SES ARE NOTED. 2. BIBASILAR PATCHY GROUNDGLASS OPACITIES WITHIN THE LUNGS. ALTHOUGH THESE ARE NONSPECIFIC AND COULD BE INFLAMMATORY OR INFECTIOUS THESE ARE FAVORED TO REPRESENT MILD CARDIOGENIC FLUID OVERLOAD GIVEN TH E PRIOR CT FINDINGS OF 09/02/2016.
== END | disposition home or self-care (01) ==
LOC: RADCTMAIN 13:17
PROVIDERS: ATTEND Surgery
DX: R91.8 Other nonspecific abnormal finding of lung field (principal)
CPT/HCPCS: 74176

== ENCOUNTER 2018-07-12 19:06 | Emergency (ER) | payer MEDICARE ==
[2018-07-12 19:18] VITALS: RESP 18
[2018-07-12 19:45] LABS: HCT 35.9 % (34.0-46.0); HGB 11.3 gm/dL (11.4-16.0); MCH 31.2 pg (25.0-35.0); MCHC 31.4 g/dL (31.0-37.0); MCV 99.4 fL (80.0-100.0); Mean Platelet Volume 6.9; Platelet Count 254 k/uL (150-450); RBC 3.61 m/uL (3.80-5.40); RDW 14.2 % (11.5-15.5)
[2018-07-12 19:51] LABS: ALT 25 U/L (9-52); AST 23 U/L (14-36); Albumin 3.7 g/dL (3.5-5.0); Alkaline Phosphatase 67 U/L (38-126); Anion Gap 8 mmol/L; Blood Urea Nitrogen 27 mg/dL (7-17); Calcium 8.7 mg/dL (8.4-10.2); Carbon Dioxide 23 mmol/L (22-30); Chloride 106 mmol/L (98-107); Glucose 130 mg/dL (74-99); Magnesium 1.7 mg/dL (1.6-2.3); Potassium 4.5 mmol/L (3.5-5.1); Sodium 137 mmol/L (137-145); Total Bilirubin 0.3 mg/dL (0.2-1.3); Total Protein 6.7 g/dL (6.3-8.2)
[2018-07-12 19:56] LABS: INR 0.9 (<1.2); Prothrombin Time 9.8 sec (9.0-12.0)
--- NOTE | 2018-07-12 20:02 | XR ---
EXAMINATION: XR chest 2V DATE AND TIME: 07/12/2018 7:38 PM CLINICAL INDICATION: PHH; Chest Pain TECHNIQUE: Departmental protocol COMPARISON: 04/24/2017 FINDINGS: The lungs are clear. The pleural spaces are negative. The cardiac silhouette is mildly enlarged, unchanged. The skeletal structures and soft tissues are negative for acute findings. IMPRESSION: NO ACUTE PROCESS.
--- NOTE | 2018-07-12 20:10 | ED ---
General Adult HPI - General Chief complaint: Chest Pain Stated complaint: Chest pain Time Seen by Provider: 07/12/18 19:16 Source: patient, family, EMS, RN notes reviewed, old records reviewed Mode of arrival: EMS - History of Present Illness Initial comments: 87-year-old female presenting for evaluation of chest pain. Patient has dementia, history is somewhat limited. History is obtained from both patient and her is at bedside. She has history of intermittent chest pain and angina, previous history of CAD with stenting. Patient according to her gets chest pain daily one or 2 episodes on average. Patient was ambulating today with her walker, denies chest pain, called EMS. Patient denies any associated symptoms. No reported history of vomiting or diaphoresis. Patient is asymptomatic at the time my evaluation. - Related Data Home Medications Medication Instructions Recorded Confirmed Atorvastatin [Lipitor] 10 mg PO HS 05/02/16 07/12/18 Omeprazole [PriLOSEC] 20 mg PO DAILY 07/30/16 07/12/18 Desloratadine 5 mg PO DAILY 07/12/18 07/12/18 Sertraline [Zoloft] 25 mg PO DAILY 07/12/18 07/12/18 Previous Rx's Medication Instructions Recorded Clopidogrel [Plavix] 75 mg PO DAILY tab 03/28/16 Aspirin 81 mg PO DAILY #30 chew 04/26/17 Metoprolol Tartrate [Lopressor] 25 mg PO BID #60 tab 04/26/17 Allergies Allergy/AdvReac Type Severity Reaction Status Date / Time codeine Allergy Unknown Verified 07/12/18 19:18 ibuprofen [From Motrin] Allergy Unknown Verified 07/12/18 19:18 Penicillins Allergy Unknown Verified 07/12/18 19:18 sulfamethoxazole AdvReac Nausea & Verified 07/12/18 19:18 [From Bactrim] Vomiting trimethoprim [From Bactrim] AdvReac Nausea & Verified 07/12/18 19:18 Vomiting Review of Systems ROS Statement: Those systems with pertinent positive or pertinent negative responses have been documented in the HPI. ROS Other: All systems not noted in ROS Statement are negative. Past Medical History Past Medical History: Coronary Artery Disease (CAD), Chest Pain / Angina, Dementia, GERD/Reflux, Hearing Disorder / Deafness, Hyperlipidemia, Hypertension, Osteoarthritis (OA) Additional Past Medical History / Comment(s): [place]- bilateral hearing aides, Aoretic stenosis, ileus, UTIs, arthritis multiple joints, esophageal stricture requiring multiple dilations. History of Any Multi-Drug Resistant Organisms: None Reported Past Surgical History: Cholecystectomy, Ear Surgery, Heart Catheterization With Stent, Hysterectomy, Joint Replacement Additional Past Surgical History / Comment(s): bony total knee arthroplasties, right shoulder surgery, bilateral ear mastoid sx. Bladder suspension Past Anesthesia/Blood Transfusion Reactions: Previous Problems w/ Anesthesia Additional Past Anesthesia/Blood Transfusion Reaction / Comment(s): chest pain post op Date of Last Stent Placement:: 2005 Past Psychological History: No Psychological Hx Reported Smoking Status: Former smoker Past Alcohol Use History: None Reported Past Drug Use History: None Reported - Past Family History Mother Family Medical History: CVA/TIA Father Family Medical History: Myocardial Infarction ([place]) Brother(s) Family Medical History: Myocardial Infarction ([place]) Sister(s) Additional Family Medical History / Comment(s): heart issues General Exam General appearance: alert, in no apparent distress Head exam: Present: atraumatic, normocephalic Eye exam: Present: normal appearance, PERRL ENT exam: Present: normal exam Neck exam: Present: normal inspection. Absent: tenderness, meningismus Respiratory exam: Present: normal lung sounds bilaterally. Absent: respiratory distress Cardiovascular Exam: Present: regular rate, normal rhythm, systolic murmur GI/Abdominal exam: Present: soft. Absent: distended, tenderness, guarding Extremities exam: Present: normal inspection, normal capillary refill, pedal edema. Absent: calf tenderness Back exam: Present: normal inspection Neurological exam: Present: alert Psychiatric exam: Present: normal affect, normal mood Skin exam: Present: warm, dry, intact. Absent: cyanosis, diaphoretic Course Vital Signs 07/12/18 07/12/18 07/12/18 19:10 20:15 21:13 Temperature 98.3 F 97.9 F Pulse Rate 76 69 68 Respiratory 18 18 18 Rate Blood Pressure 176/73 126/50 152/55 O2 Sat by Pulse 96 96 97 Oximetry EKG Findings - EKG Comments: EKG Findings:: EKG: Normal sinus rhythm, rate 72, IA interval 172, QRS duration 84, QTC 433, no ST segment changes, T waves are upright Medical Decision Making - Medical Decision Making 87-year-old female presenting with an episode of chest pain. Pain resolved. History is somewhat difficult given the patient's history of dementia. There is reported anginal pain and complaints of chest pain on a nearly daily basis. EKG nonischemic. Chest x-ray negative for any acute cardio pulmonary disease, normal CBC, normal CMP, troponin negative. I would normally at least observe this patient for serial cardiac enzymes and telemetry with cardiology consultation. I did have a long discussion with the patient's , daughter, and it was decided with all parties involved that would allow the patient to be discharged. This is her wishes. She does have a test and turn up technician who will follow-up on Sunday. [facility] and will present with worsening or changing symptoms. - Lab Data Result diagrams: 07/12/18 19:25 07/12/18 19:25 Lab Results 07/12/18 07/12/18 07/12/18 Range/Units 19:25 19:25 19:25 WBC 7.0 (3.8-10.6) k/uL RBC 3.61 L (3.80-5.40) m/uL Hgb 11.3 L (11.4-16.0) gm/dL Hct 35.9 (34.0-46.0) % MCV 99.4 (80.0-100.0) fL MCH 31.2 (25.0-35.0) pg MCHC 31.4 (31.0-37.0) g/dL RDW 14.2 (11.5-15.5) % Plt Count 254 (150-450) k/uL Neutrophils % (Manual) 49 % Lymphocytes % (Manual) 35 % Monocytes % (Manual) 16 % Neutrophils # (Manual) 3.43 (1.3-7.7) k/uL Lymphocytes # (Manual) 2.45 (1.0-4.8) k/uL Monocytes # (Manual) 1.12 H (0-1.0) k/uL Nucleated RBCs 0 (0-0) /100 WBC Manual Slide Review Performed PT (9.0-12.0) sec INR (<1.2) APTT (22.0-30.0) sec Sodium 137 (137-145) mmol/L Potassium 4.5 (3.5-5.1) mmol/L Chloride 106 (98-107) mmol/L Carbon Dioxide 23 (22-30) mmol/L Anion Gap 8 mmol/L BUN 27 H (7-17) mg/dL Creatinine 0.60 (0.52-1.04) mg/dL Est GFR (CKD-EPI)AfAm >90 (>60 ml/min/1.73 sqM) Est GFR (CKD-EPI)NonAf 82 (>60 ml/min/1.73 sqM) Glucose 130 H (74-99) mg/dL Calcium 8.7 (8.4-10.2) mg/dL Magnesium 1.7 (1.6-2.3) mg/dL Total Bilirubin 0.3 (0.2-1.3) mg/dL AST 23 (14-36) U/L ALT 25 (9-52) U/L Alkaline Phosphatase 67 (38-126) U/L Troponin I (0.000-0.034) ng/mL NT-Pro-B Natriuret Pep 434 pg/mL Total Protein 6.7 (6.3-8.2) g/dL Albumin 3.7 (3.5-5.0) g/dL 07/12/18 07/12/18 Range/Units 19:25 19:25 WBC (3.8-10.6) k/uL RBC (3.80-5.40) m/uL Hgb (11.4-16.0) gm/dL Hct (34.0-46.0) % MCV (80.0-100.0) fL MCH (25.0-35.0) pg MCHC (31.0-37.0) g/dL RDW (11.5-15.5) % Plt Count (150-450) k/uL Neutrophils % (Manual) % Lymphocytes % (Manual) % Monocytes % (Manual) % Neutrophils # (Manual) (1.3-7.7) k/uL Lymphocytes # (Manual) (1.0-4.8) k/uL Monocytes # (Manual) (0-1.0) k/uL Nucleated RBCs (0-0) /100 WBC Manual Slide Review PT 9.8 (9.0-12.0) sec INR 0.9 (<1.2) APTT 23.0 (22.0-30.0) sec Sodium (137-145) mmol/L Potassium (3.5-5.1) mmol/L Chloride (98-107) mmol/L Carbon Dioxide (22-30) mmol/L Anion Gap mmol/L BUN (7-17) mg/dL Creatinine (0.52-1.04) mg/dL Est GFR (CKD-EPI)AfAm (>60 ml/min/1.73 sqM) Est GFR (CKD-EPI)NonAf (>60 ml/min/1.73 sqM) Glucose (74-99) mg/dL Calcium (8.4-10.2) mg/dL Magnesium (1.6-2.3) mg/dL Total Bilirubin (0.2-1.3) mg/dL AST (14-36) U/L ALT (9-52) U/L Alkaline Phosphatase (38-126) U/L Troponin I <0.012 (0.000-0.034) ng/mL NT-Pro-B Natriuret Pep pg/mL Total Protein (6.3-8.2) g/dL Albumin (3.5-5.0) g/dL Disposition Clinical Impression: Chest pain Disposition: HOME SELF-CARE Condition: Fair Instructions (If sedation given, give patient instructions): Chest Pain (ED) Additional Instructions: Please follow up with her test and turn up technician, please do not hesitate to return with wo rsening or changing symptoms. Is patient prescribed a controlled substance at d/c from ED?: No Referrals: Matt Singer DO [Primary Care Provider] - 1-2 days Time of Disposition: 21:22
[2018-07-12 20:25] LABS: Lymphocytes # (M) 2.45 k/uL (1.0-4.8); Monocytes # (M) 1.12 k/uL (0-1.0); Neutrophils # (M) 3.43 k/uL (1.3-7.7); Neutrophils % (M) 49 %; Nucleated Red Blood Cells 0 /100 WBC (0-0); Total Cells Counted 100
[2018-07-12 21:13] VITALS: BP 152/55; PULSE 68; TEMP 97.9
== END 2018-07-12 21:40 | disposition home or self-care (01) ==
LOC: EC 19:06
DX: I25.119 Atherosclerotic heart disease of native coronary artery with unspecified angina pectoris (principal); R01.1 Cardiac murmur, unspecified; E78.5 Hyperlipidemia, unspecified; I10 Essential (primary) hypertension; K21.9 Gastro-esophageal reflux disease without esophagitis; M19.90 Unspecified osteoarthritis, unspecified site; F03.90 Unspecified dementia, unspecified severity, without behavioral disturbance, psychotic disturbance, mood disturbance, and anxiety; H91.93 Unspecified hearing loss, bilateral; Z87.891 Personal history of nicotine dependence; Z88.0 Allergy status to penicillin; Z88.2 Allergy status to sulfonamides; Z88.5 Allergy status to narcotic agent; Z88.6 Allergy status to analgesic agent; Z79.899 Other long term (current) drug therapy; Z96.20 Presence of otological and audiological implant, unspecified; Z95.5 Presence of coronary angioplasty implant and graft; Z96.653 Presence of artificial knee joint, bilateral; Z82.49 Family history of ischemic heart disease and other diseases of the circulatory system
CPT/HCPCS: 36415; 71046; 80053; 83735; 83880; 84484; 85025; 85610; 85730; 93005; 99285

== ENCOUNTER 2018-09-29 11:59 | Emergency (ER) | payer MEDICARE ==
[2018-09-29] MEDS ORDERED: SODIUM CHLORIDE 0.9% 1,000 ML IV STA (12:04)
[2018-09-29] MEDS ORDERED: ONDANSETRON 4 MG/2 ML VIAL IVP STA (12:04)
[2018-09-29 12:07] VITALS: PULSE 89; TEMP 98.7
[2018-09-29] MEDS ORDERED: ONDANSETRON ODT 4 MG TAB PO STA (12:21)
--- NOTE | 2018-09-29 12:59 | ED ---
Abdominal Pain HPI - General Chief Complaint: Abdominal Pain Stated Complaint: nausea Time Seen by Provider: 09/29/18 12:02 Source: patient, RN notes reviewed, old records reviewed Mode of arrival: EMS Limitations: no limitations - History of Present Illness Initial Comments: This is a 80-year-old female the ER for evaluation she presents today for eval uation regarding multiple nonspecific complaints nausea and abdominal pain. EMS and patient's chart pickup positive taking over the hospital patient began to feel nauseous she did status EMS wanted to come to ER to be checked out. Currently patient is a symptomatically has no complaints of nausea vomiting, no abdominal pain. No chest pain or shortness of breath. Again patient is without any complaint currently MD Complaint: abdominal pain -: minutes(s) Location: diffuse, periumbilical Radiation: none Migration to: no migration Severity: mild Quality: aching Consistency: now resolved Improves With: nothing Worsens With: nothing Associated Symptoms: nausea - Related Data Home Medications Medication Instructions Recorded Confirmed Atorvastatin [Lipitor] 10 mg PO HS 05/02/16 09/29/18 Omeprazole [PriLOSEC] 20 mg PO DAILY 07/30/16 09/29/18 Desloratadine 5 mg PO DAILY 07/12/18 09/29/18 Sertraline [Zoloft] 25 mg PO DAILY 07/12/18 09/29/18 Previous Rx's Medication Instructions Recorded Clopidogrel [Plavix] 75 mg PO DAILY tab 03/28/16 Aspirin 81 mg PO DAILY #30 chew 04/26/17 Metoprolol Tartrate [Lopressor] 25 mg PO BID #60 tab 04/26/17 Allergies Allergy/AdvReac Type Severity Reaction Status Date / Time codeine Allergy Unknown Verified 09/29/18 12:47 ibuprofen [From Motrin] Allergy Unknown Verified 09/29/18 12:47 Penicillins Allergy Unknown Verified 09/29/18 12:47 sulfamethoxazole AdvReac Nausea & Verified 09/29/18 12:47 [From Bactrim] Vomiting trimethoprim [From Bactrim] AdvReac Nausea & Verified 09/29/18 12:47 Vomiting Review of Systems ROS Statement: Those systems with pertinent positive or pertinent negative responses have been documented in the HPI. ROS Other: All systems not noted in ROS Statement are negative. Past Medical History Past Medical History: Coronary Artery Disease (CAD), Chest Pain / Angina, Dementia, GERD/Reflux, Hearing Disorder / Deafness, Hyperlipidemia, Hypertension, Osteoarthritis (OA) Additional Past Medical History / Comment(s): [place]- bilateral hearing aides, Aoretic stenosis, ileus, UTIs, arthritis multiple joints, esophageal stricture requiring multiple dilations. History of Any Multi-Drug Resistant Organisms: None Reported Past Surgical History: Cholecystectomy, Ear Surgery, Heart Catheterization With Stent, Hysterectomy, Joint Replacement Additional Past Surgical History / Comment(s): bony total knee arthroplasties, right shoulder surgery, bilateral ear mastoid sx. Bladder suspension Past Anesthesia/Blood Transfusion Reactions: Previous Problems w/ Anesthesia Additional Past Anesthesia/Blood Transfusion Reaction / Comment(s): chest pain post op Date of Last Stent Placement:: 2005 Past Psychological History: No Psychological Hx Reported Smoking Status: Former smoker Past Alcohol Use History: None Reported Past Drug Use History: None Reported - Past Family History Mother Family Medical History: CVA/TIA Father Family Medical History: Myocardial Infarction ([place]) Brother(s) Family Medical History: Myocardial Infarction ([place]) Sister(s) Additional Family Medical History / Comment(s): heart issues General Exam Limitations: no limitations General appearance: alert, in no apparent distress Head exam: Present: atraumatic, normocephalic, normal inspection Eye exam: Present: normal appearance, PERRL, EOMI. Absent: scleral icterus, conjunctival injection, periorbital swelling ENT exam: Present: normal exam, mucous membranes moist Neck exam: Present: normal inspection. Absent: tenderness, meningismus, lymphadenopathy Respiratory exam: Present: normal lung sounds bilaterally. Absent: respiratory distress, wheezes, rales, rhonchi, stridor Cardiovascular Exam: Present: regular rate, normal rhythm, normal heart sounds. Absent: systolic murmur, diastolic murmur, rubs, gallop, clicks GI/Abdominal exam: Present: soft, normal bowel sounds. Absent: distended, tenderness, guarding, rebound, rigid Extremities exam: Present: normal inspection, full ROM, normal capillary refill. Absent: tenderness, pedal edema, joint swelling, calf tenderness Back exam: Present: normal inspection Neurological exam: Present: alert, oriented X3, CN II-XII intact Psychiatric exam: Present: normal affect, normal mood Skin exam: Present: warm, dry, intact, normal color. Absent: rash Course Vital Signs 09/29/18 12:02 Temperature 98.7 F Pulse Rate 89 Respiratory 16 Rate Blood Pressure 148/74 O2 Sat by Pulse 95 Oximetry - Reevaluation(s) Reevaluation #1: 09/29/18 13:06 Medical record reviewed Reevaluation #2: 09/29/18 13:06 Patient is without current complaining Medical Decision Making - Medical Decision Making 88 female the ER for evaluation, patient will be discharged home if she is currently asymptomatic. Patient symptoms began while patient's was going to hospital, anion anxiety component. Patient remains asymptomatic throughout ER stay - Lab Data Lab Results 09/29/18 Range/Units 12:40 Urine Color Yellow Urine Appearance Cloudy H (Clear) Urine pH 6.0 (5.0-8.0) Ur Specific [place] 1.026 (1.001-1.035) Urine Protein Trace H (Negative) Urine Glucose (UA) Negative (Negative) Urine Ketones Negative (Negative) Urine Blood Negative (Negative) Urine Nitrite Negative (Negative) Urine Bilirubin Negative (Negative) Urine Urobilinogen <2.0 (<2.0) mg/dL Ur Leukocyte Esterase Large H (Negative) Urine RBC 7 H (0-5) /hpf Urine WBC 111 H (0-5) /hpf Ur Squamous Epith Cells 8 H (0-4) /hpf Urine Bacteria Rare H (None) /hpf Urine Mucus Rare H (None) /hpf Disposition Clinical Impression: Nausea, UTI (urinary tract infection) Disposition: HOME SELF-CARE Condition: Good Instructions (If sedation given, give patient instructions): Acute Nausea and Vomiting (ED), Urinary Tract Infection in Women (ED) Is patient prescribed a controlled substance at d/c from ED?: No Referrals: Mario Lay MD [Primary Care Provider] - 1-2 days
[2018-09-29 13:14] LABS: Appearance,Urine Cloudy (Clear); Bacteria,Urine Rare /hpf; Bilirubin,Urine Negative (Negative); Blood,Urine Negative (Negative); Color,Urine Yellow; Glucose,Urine (UA) Negative (Negative); Ketones,Urine Negative (Negative); Leukocyte Esterase,Urine Large (Negative); Mucus,Urine Rare /hpf; Nitrite,Urine Negative (Negative); Protein,Urine Trace (Negative); RBC,Urine 7 /hpf (0-5); Specific Gravity,Urine 1.026 (1.001-1.035); Squamous Epithelial Cell,Urine 8 /hpf (0-4); Urobilinogen,Urine <2.0 mg/dL (<2.0); WBC,Urine 111 /hpf (0-5)
[2018-09-29] MEDS ORDERED: NITROFURANTOIN MONOHYD/M-CRYST 100 MG CAP PO STA (13:17)
[2018-09-29 13:41] VITALS: BP 131/70; RESP 18
== END 2018-09-29 14:40 | disposition home or self-care (01) ==
LOC: EC 11:59
DX: N39.0 Urinary tract infection, site not specified (principal); R11.0 Nausea; I25.119 Atherosclerotic heart disease of native coronary artery with unspecified angina pectoris; K21.9 Gastro-esophageal reflux disease without esophagitis; E78.5 Hyperlipidemia, unspecified; I10 Essential (primary) hypertension; M19.90 Unspecified osteoarthritis, unspecified site; H91.93 Unspecified hearing loss, bilateral; Z87.891 Personal history of nicotine dependence; Z88.0 Allergy status to penicillin; Z88.2 Allergy status to sulfonamides; Z88.5 Allergy status to narcotic agent; Z88.6 Allergy status to analgesic agent; Z79.899 Other long term (current) drug therapy; Z86.79 Personal history of other diseases of the circulatory system; Z90.49 Acquired absence of other specified parts of digestive tract; Z95.5 Presence of coronary angioplasty implant and graft; Z96.653 Presence of artificial knee joint, bilateral; Z97.4 Presence of external hearing-aid; Z98.890 Other specified postprocedural states; Z53.8 Procedure and treatment not carried out for other reasons
CPT/HCPCS: 81001; 87086; 99284

== ENCOUNTER 2018-10-31 11:52 | Observation (INO) | payer MEDICARE ==
--- NOTE | 2018-10-31 12:28 | ED ---
GI Bleed HPI - General Chief complaint: GI Bleed Stated complaint: GI Bleed Time Seen by Provider: 10/31/18 11:52 Source: patient, EMS, RN notes reviewed Mode of arrival: EMS Limitations: no limitations - History of Present Illness Initial comments: This 88-year-old female presents by EMS today with complaints of really dark red stool this morning. She has no prior history of GI bleeding. Of note she was seen here yesterday after a vasovagal episode dehydration episode while in the hospital after she found out that her . He worked up at that time was unremarkable except for evidence dehydration. She currently denies any abdominal pain no fevers chills nausea vomiting sweats or other symptoms. MD complaint: gross hematochezia - Related Data Home Medications Medication Instructions Recorded Confirmed Atorvastatin [Lipitor] 10 mg PO HS 05/02/16 10/31/18 Omeprazole [PriLOSEC] 20 mg PO DAILY 07/30/16 10/31/18 Desloratadine 5 mg PO DAILY 07/12/18 10/31/18 Sertraline [Zoloft] 25 mg PO DAILY 07/12/18 10/31/18 risperiDONE 1 mg PO HS 10/31/18 10/31/18 Previous Rx's Medication Instructions Recorded Clopidogrel [Plavix] 75 mg PO DAILY tab 03/28/16 Aspirin 81 mg PO DAILY #30 chew 04/26/17 Metoprolol Tartrate [Lopressor] 25 mg PO BID #60 tab 04/26/17 Allergies Allergy/AdvReac Type Severity Reaction Status Date / Time codeine Allergy Unknown Verified 10/31/18 12:44 ibuprofen [From Motrin] Allergy Unknown Verified 10/31/18 12:44 Penicillins Allergy Unknown Verified 10/31/18 12:44 sulfamethoxazole AdvReac Nausea & Verified 10/31/18 12:44 [From Bactrim] Vomiting trimethoprim [From Bactrim] AdvReac Nausea & Verified 10/31/18 12:44 Vomiting Review of Systems ROS Statement: Those systems with pertinent positive or pertinent negative responses have been documented in the HPI. ROS Other: All systems not noted in ROS Statement are negative. Past Medical History Past Medical History: Coronary Artery Disease (CAD), Chest Pain / Angina, Dementia, GERD/Reflux, Hearing Disorder / Deafness, Hyperlipidemia, Hypertension, Osteoarthritis (OA) Additional Past Medical History / Comment(s): [place]- bilateral hearing aides, Aoretic stenosis, ileus, UTIs, arthritis multiple joints, esophageal stricture requiring multiple dilations. History of Any Multi-Drug Resistant Organisms: None Reported Past Surgical History: Cholecystectomy, Ear Surgery, Heart Catheterization With Stent, Hysterectomy, Joint Replacement Additional Past Surgical History / Comment(s): bony total knee arthroplasties, right shoulder surgery, bilateral ear mastoid sx. Bladder suspension Past Anesthesia/Blood Transfusion Reactions: Previous Problems w/ Anesthesia Additional Past Anesthesia/Blood Transfusion Reaction / Comment(s): chest pain post op Date of Last Stent Placement:: 2005 Past Psychological History: No Psychological Hx Reported Smoking Status: Former smoker Past Alcohol Use History: None Reported Past Drug Use History: None Reported - Past Family History Mother Family Medical History: CVA/TIA Father Family Medical History: Myocardial Infarction ([place]) Brother(s) Family Medical History: Myocardial Infarction ([place]) Sister(s) Additional Family Medical History / Comment(s): heart issues General Exam - General Exam Comments Initial Comments: Is a well-developed asthenic appearing female who is awake alert oriented 3 Limitations: no limitations General appearance: alert, in no apparent distress Head exam: Present: atraumatic, normocephalic, normal inspection Eye exam: Present: normal appearance, PERRL, EOMI. Absent: scleral icterus, conjunctival injection, periorbital swelling ENT exam: Present: normal exam, mucous membranes moist Neck exam: Present: normal inspection. Absent: tenderness, meningismus, lymphadenopathy Respiratory exam: Present: normal lung sounds bilaterally. Absent: respiratory distress, wheezes, rales, rhonchi, stridor Cardiovascular Exam: Present: regular rate, normal rhythm, normal heart sounds. Absent: systolic murmur, diastolic murmur, rubs, gallop, clicks GI/Abdominal exam: Present: soft, normal bowel sounds. Absent: distended, tenderness, guarding, rebound, rigid Extremities exam: Present: normal inspection, full ROM, normal capillary refill. Absent: tenderness, pedal edema, joint swelling, calf tenderness Back exam: Present: normal inspection Neurological exam: Present: alert, oriented X3, CN II-XII intact Psychiatric exam: Present: normal affect, normal mood Skin exam: Present: warm, dry, intact, normal color. Absent: rash Course Vital Signs 10/31/18 10/31/18 12:11 13:04 Temperature 97.9 F Pulse Rate 81 75 Respiratory 18 18 Rate Blood Pressure 169/67 155/70 O2 Sat by Pulse 97 96 Oximetry Medical Decision Making - Medical Decision Making I did discuss findings with patient family members as well as with Dr. Gary who is covering Dr. Hernandez. Patient will be admitted for evaluation and serial H&H is. She has been constipated recently per family she did sit on a hot pack this morning prior to the blood 3 being found. She denies any dysuria hematuria though she does have increased number of red cells in her urine yesterday. - Lab Data Result diagrams: 10/31/18 12:00 10/31/18 12:00 Lab Results 10/31/18 10/31/18 10/31/18 Range/Units 12:00 12:00 12:00 WBC 20.9 H (3.8-10.6) k/uL RBC 3.66 L (3.80-5.40) m/uL Hgb 11.4 (11.4-16.0) gm/dL Hct 35.9 (34.0-46.0) % MCV 97.9 (80.0-100.0) fL MCH 31.0 (25.0-35.0) pg MCHC 31.7 (31.0-37.0) g/dL RDW 14.7 (11.5-15.5) % Plt Count 238 (150-450) k/uL Neutrophils % 92 % Lymphocytes % 3 % Monocytes % 3 % Eosinophils % 0 % Basophils % 0 % Neutrophils # 19.3 H (1.3-7.7) k/uL Lymphocytes # 0.7 L (1.0-4.8) k/uL Monocytes # 0.6 (0-1.0) k/uL Eosinophils # 0.1 (0-0.7) k/uL Basophils # 0.0 (0-0.2) k/uL APTT 24.8 (22.0-30.0) sec Sodium 138 (137-145) mmol/L Potassium 5.2 H (3.5-5.1) mmol/L Chloride 106 (98-107) mmol/L Carbon Dioxide 24 (22-30) mmol/L Anion Gap 8 mmol/L BUN 24 H (7-17) mg/dL Creatinine 0.61 (0.52-1.04) mg/dL Est GFR (CKD-EPI)AfAm >90 (>60 ml/min/1.73 sqM) Est GFR (CKD-EPI)NonAf 81 (>60 ml/min/1.73 sqM) Glucose 91 (74-99) mg/dL Calcium 9.1 (8.4-10.2) mg/dL Total Bilirubin 0.6 (0.2-1.3) mg/dL AST 36 (14-36) U/L ALT 16 (9-52) U/L Alkaline Phosphatase 51 (38-126) U/L Creatine Kinase 63 (30-135) U/L Troponin I (0.000-0.034) ng/mL Total Protein 6.5 (6.3-8.2) g/dL Albumin 3.7 (3.5-5.0) g/dL Urine Color Urine Appearance (Clear) Urine pH (5.0-8.0) Ur Specific [place] (1.001-1.035) Urine Protein (Negative) Urine Glucose (UA) (Negative) Urine Ketones (Negative) Urine Blood (Negative) Urine Nitrite (Negative) Urine Bilirubin (Negative) Urine Urobilinogen (<2.0) mg/dL Ur Leukocyte Esterase (Negative) Urine RBC (0-5) /hpf Urine WBC (0-5) /hpf Ur Squamous Epith Cells (0-4) /hpf Amorphous Sediment (None) /hpf Stool Occult Blood (Negative) Blood Type Blood Type Confirm Blood Type Recheck Antibody Screen Spec Expiration Date 10/31/18 10/31/18 10/31/18 Range/Units 12:00 12:00 12:00 WBC (3.8-10.6) k/uL RBC (3.80-5.40) m/uL Hgb (11.4-16.0) gm/dL Hct (34.0-46.0) % MCV (80.0-100.0) fL MCH (25.0-35.0) pg MCHC (31.0-37.0) g/dL RDW (11.5-15.5) % Plt Count (150-450) k/uL Neutrophils % % Lymphocytes % % Monocytes % % Eosinophils % % Basophils % % Neutrophils # (1.3-7.7) k/uL Lymphocytes # (1.0-4.8) k/uL Monocytes # (0-1.0) k/uL Eosinophils # (0-0.7) k/uL Basophils # (0-0.2) k/uL APTT (22.0-30.0) sec Sodium (137-145) mmol/L Potassium (3.5-5.1) mmol/L Chloride (98-107) mmol/L Carbon Dioxide (22-30) mmol/L Anion Gap mmol/L BUN (7-17) mg/dL Creatinine (0.52-1.04) mg/dL Est GFR (CKD-EPI)AfAm (>60 ml/min/1.73 sqM) Est GFR (CKD-EPI)NonAf (>60 ml/min/1.73 sqM) Glucose (74-99) mg/dL Calcium (8.4-10.2) mg/dL Total Bilirubin (0.2-1.3) mg/dL AST (14-36) U/L ALT (9-52) U/L Alkaline Phosphatase (38-126) U/L Creatine Kinase (30-135) U/L Troponin I <0.012 (0.000-0.034) ng/mL Total Protein (6.3-8.2) g/dL Albumin (3.5-5.0) g/dL Urine Color Urine Appearance (Clear) Urine pH (5.0-8.0) Ur Specific [place] (1.001-1.035) Urine Protein (Negative) Urine Glucose (UA) (Negative) Urine Ketones (Negative) Urine Blood (Negative) Urine Nitrite (Negative) Urine Bilirubin (Negative) Urine Urobilinogen (<2.0) mg/dL Ur Leukocyte Esterase (Negative) Urine RBC (0-5) /hpf Urine WBC (0-5) /hpf Ur Squamous Epith Cells (0-4) /hpf Amorphous Sediment (None) /hpf Stool Occult Blood Negative (Negative) Blood Type A Positive Blood Type Confirm Blood Type Recheck CABO Indicated Antibody Screen NEGATIVE Spec Expiration Date 11/03/2018 - 229910/31/18 10/31/18 Range/Units 12:25 12:55 WBC (3.8-10.6) k/uL RBC (3.80-5.40) m/uL Hgb (11.4-16.0) gm/dL Hct (34.0-46.0) % MCV (80.0-100.0) fL MCH (25.0-35.0) pg MCHC (31.0-37.0) g/dL RDW (11.5-15.5) % Plt Count (150-450) k/uL Neutrophils % % Lymphocytes % % Monocytes % % Eosinophils % % Basophils % % Neutrophils # (1.3-7.7) k/uL Lymphocytes # (1.0-4.8) k/uL Monocytes # (0-1.0) k/uL Eosinophils # (0-0.7) k/uL Basophils # (0-0.2) k/uL APTT (22.0-30.0) sec Sodium (137-145) mmol/L Potassium (3.5-5.1) mmol/L Chloride (98-107) mmol/L Carbon Dioxide (22-30) mmol/L Anion Gap mmol/L BUN (7-17) mg/dL Creatinine (0.52-1.04) mg/dL Est GFR (CKD-EPI)AfAm (>60 ml/min/1.73 sqM) Est GFR (CKD-EPI)NonAf (>60 ml/min/1.73 sqM) Glucose (74-99) mg/dL Calcium (8.4-10.2) mg/dL Total Bilirubin (0.2-1.3) mg/dL AST (14-36) U/L ALT (9-52) U/L Alkaline Phosphatase (38-126) U/L Creatine Kinase (30-135) U/L Troponin I (0.000-0.034) ng/mL Total Protein (6.3-8.2) g/dL Albumin (3.5-5.0) g/dL Urine Color Yellow Urine Appearance Cloudy H (Clear) Urine pH 5.5 (5.0-8.0) Ur Specific [place] 1.018 (1.001-1.035) Urine Protein Trace H (Negative) Urine Glucose (UA) Negative (Negative) Urine Ketones Negative (Negative) Urine Blood Moderate H (Negative) Urine Nitrite Negative (Negative) Urine Bilirubin Negative (Negative) Urine Urobilinogen <2.0 (<2.0) mg/dL Ur Leukocyte Esterase Large H (Negative) Urine RBC 100 H (0-5) /hpf Urine WBC 41 H (0-5) /hpf Ur Squamous Epith Cells 2 (0-4) /hpf Amorphous Sediment Occasional H (None) /hpf Stool Occult Blood (Negative) Blood Type Blood Type Confirm A Positive Blood Type Recheck Antibody Screen Spec Expiration Date Disposition Clinical Impression: GI bleed, Anemia, Hematuria, Constipation, Dehydration, Failure to thrive Disposition: ADMITTED IP TO THIS HOSP Referrals: Mario Lay MD [Primary Care Provider] - 1-2 days
[2018-10-31 12:35] LABS: Basophils % (A) 0 %; Eosinophils # (A) 0.1 k/uL (0-0.7); Eosinophils % (A) 0 %; HCT 35.9 % (34.0-46.0); HGB 11.4 gm/dL (11.4-16.0); Lymphocytes # (A) 0.7 k/uL (1.0-4.8); Lymphocytes % (A) 3 %; MCHC 31.7 g/dL (31.0-37.0); MCV 97.9 fL (80.0-100.0); Mean Platelet Volume 7.7; Monocytes # (A) 0.6 k/uL (0-1.0); Monocytes % (A) 3 %; Neutrophils # (A) 19.3 k/uL (1.3-7.7); Neutrophils % (A) 92 %; Platelet Count 238 k/uL (150-450); RBC 3.66 m/uL (3.80-5.40); RDW 14.7 % (11.5-15.5); WBC 20.9 k/uL (3.8-10.6)
[2018-10-31 12:47] LABS: African American GFR (CKD) >90 (>60 ml/min/1.73 sqM); Albumin 3.7 g/dL (3.5-5.0); Anion Gap 8 mmol/L; Blood Urea Nitrogen 24 mg/dL (7-17); Calcium 9.1 mg/dL (8.4-10.2); Carbon Dioxide 24 mmol/L (22-30); Chloride 106 mmol/L (98-107); Creatine Kinase 63 U/L (30-135); Glucose 91 mg/dL (74-99); Sodium 138 mmol/L (137-145); Total Bilirubin 0.6 mg/dL (0.2-1.3); Total Protein 6.5 g/dL (6.3-8.2)
[2018-10-31 13:16] LABS: Amorphous Sediment,Urine Occasional /hpf; Appearance,Urine Cloudy (Clear); Bilirubin,Urine Negative (Negative); Blood,Urine Moderate (Negative); Color,Urine Yellow; Glucose,Urine (UA) Negative (Negative); Ketones,Urine Negative (Negative); Leukocyte Esterase,Urine Large (Negative); Nitrite,Urine Negative (Negative); PH, Urine 5.5 (5.0-8.0); Protein,Urine Trace (Negative); RBC,Urine 100 /hpf (0-5); Specific Gravity,Urine 1.018 (1.001-1.035); Squamous Epithelial Cell,Urine 2 /hpf (0-4); Urobilinogen,Urine <2.0 mg/dL (<2.0)
[2018-10-31 13:20] LABS: AST 36 U/L (14-36); Potassium 5.2 mmol/L (3.5-5.1)
[2018-10-31 13:21] LABS: ALT 16 U/L (9-52); Alkaline Phosphatase 51 U/L (38-126)
[2018-10-31] MEDS ORDERED: ACETAMINOPHEN TAB 325 MG TAB PO PRN (14:57)
[2018-10-31] MEDS ORDERED: NALOXONE 0.4 MG/ML 1 ML VIAL IV PRN ×2 (14:57→18:08)
[2018-10-31] MEDS ORDERED: DOCUSATE 283 MG/5 ML ENEMA RECTAL STA (15:01)
[2018-10-31] MEDS: SODIUM CHLORIDE 0.9% 1,000 ML IV SCH (16:22)
[2018-10-31] MEDS ORDERED: BISACODYL 5 MG TABLET.DR PO PRN (18:08)
[2018-10-31] MEDS ORDERED: ONDANSETRON 4 MG/2 ML VIAL IVP PRN (18:08)
--- NOTE | 2018-10-31 18:14 | P.HPIM ---
History of Present Illness H&P Date: 10/31/18 Patient is an 86-year-old female with a past medical history dementia, hypertension, dyslipidemia, and coronary artery disease status post stenting, history of severe aortic stenosis who presented from assisted living with her daughter via private vehicle with chief complaint of severe constipation with blood on the toilet paper. The patient is a poor historian secondary to her dementia, she is only oriented to self and situation, hence most of the history is gleaned from the medical records as well as her family members and daughter Mela SAINI. The patient herself did mention increased frequency and burning with urination. Apparently the patient has had a history of severe constipation and received a dose of MiraLAX earlier today, the patient has been having difficulty moving her bowels and had blood on the toilet paper and into her undergarments. Daughter denies any dark tarry stools or previous history of GI bleed, they deny ongoing NSAID use. Apparently the patient recently lost her and keeps referring to the fact that she lost her father yesterday and had a syncopal episode and was seen in the ER, Today in the ER the patient had a comprehensive workup remarkable labs the WBC count of 20.9, serum potassium 5.2 urinalysis WBCs 100, urine WBC 41 Past Medical History Past Medical History: Coronary Artery Disease (CAD), Chest Pain / Angina, Dementia, GERD/Reflux, Hearing Disorder / Deafness, Hyperlipidemia, Hyp ertension, Osteoarthritis (OA) Additional Past Medical History / Comment(s): [place]- bilateral hearing aides, Aoretic stenosis, ileus, UTIs, arthritis multiple joints, esophageal stricture requiring multiple dilations. History of Any Multi-Drug Resistant Organisms: None Reported Past Surgical History: Cholecystectomy, Ear Surgery, Heart Catheterization With Stent, Hysterectomy, Joint Replacement Additional Past Surgical History / Comment(s): bony total knee arthroplasties, right shoulder surgery, bilateral ear mastoid sx. Bladder suspension Past Anesthesia/Blood Transfusion Reactions: Previous Problems w/ Anesthesia Additional Past Anesthesia/Blood Transfusion Reaction / Comment(s): chest pain post op Date of Last Stent Placement:: 2005 Past Psychological History: No Psychological Hx Reported Additional Psychological History / Comment(s): Pt resides with her spouse at [facility]. She uses a cane or wheeled walker to ambulate. Staff manage her medications. She gets to appts with family. Smoking Status: Former smoker Past Alcohol Use History: None Reported Past Drug Use History: None Reported - Past Family History Mother Family Medical History: CVA/TIA Father Family Medical History: Myocardial Infarction ([place]) Brother(s) Family Medical History: Myocardial Infarction ([place]) Sister(s) Additional Family Medical History / Comment(s): heart issues Medications and Allergies Home Medications Medication Instructions Recorded Confirmed Type Clopidogrel [Plavix] 75 mg PO DAILY tab 03/28/16 10/31/18 Rx Atorvastatin [Lipitor] 10 mg PO HS 05/02/16 10/31/18 History Omeprazole [PriLOSEC] 20 mg PO DAILY 07/30/16 10/31/18 History Aspirin 81 mg PO DAILY #30 chew 04/26/17 10/31/18 Rx Metoprolol Tartrate [Lopressor] 25 mg PO BID #60 tab 04/26/17 10/31/18 Rx Desloratadine 5 mg PO DAILY 07/12/18 10/31/18 History Sertraline [Zoloft] 25 mg PO DAILY 07/12/18 10/31/18 History risperiDONE 1 mg PO HS 10/31/18 10/31/18 History Allergies Allergy/AdvReac Type Severity Reaction Status Date / Time codeine Allergy Unknown Verified 10/31/18 12:44 ibuprofen [From Motrin] Allergy Unknown Verified 10/31/18 12:44 Penicillins Allergy Unknown Verified 10/31/18 12:44 sulfamethoxazole AdvReac Nausea & Verified 10/31/18 12:44 [From Bactrim] Vomiting trimethoprim [From Bactrim] AdvReac Nausea & Verified 10/31/18 12:44 Vomiting Physical Exam Vitals: Vital Signs Temp Pulse Resp BP Pulse Ox 10/31/18 15:56 98.3 F 66 18 135/61 96 10/31/18 13:04 75 18 155/70 96 10/31/18 12:11 97.9 F 81 18 169/67 97 Intake and Output 10/31/18 10/31/18 10/31/18 06:59 14:59 22:59 Other: Voiding Method Bedside Commode Bedpan Incontinent Weight 48.988 kg Constitutional: No acute distress, conversant, pleasant Eyes: Anicteric sclerae, moist conjunctiva, no lid-lag, PERRLA ENMT: NC/AT,Oropharynx clear, no erythema, exudates Neck:Supple, FROM, no masses, or JVD, No carotid bruits; No thyromegaly Lungs: Clear to auscultation, Clear to percussion, Normal respiratory effort, no accessory muscle use Cardiovascular: Heart regular in rate and rhythm, regular S1-S2 with a prominent ejection murmur at the base, no gallops, or rubs no peripheral edema Abdominal: Soft Nontender, nom distended, no guarding, no rebound or rigidity, Normoactive bowel sounds No hepatomegaly, No splenomegaly, No palpable mass No abdominal wall hernia noted Skin: Normal temperature, tone, texture, turgor, No induration No subcutaneous nodules, No rash, lesions, No ulcers Extremities:No digital cyanosis No clubbing, Pedal pulses intact and symmetrical Radial pulses intact and symmetrical Normal gait and station, No calf tenderness Psychiatric: Alert and oriented to person, place and time, Appropriate affect Intact judgement Neuro: Muscles Strength 5/5 in all 4 extremities, Sensation to light touch grossly present throughout, Cranial nerves II-XII grossly intact. No focal sensory deficits Results CBC & Chem 7: 10/31/18 12:00 10/31/18 12:00 Labs: Abnormal Lab Results - Last 24 Hours (Table) 10/31/18 10/31/18 10/31/18 Range/Units 12:00 12:00 12:55 WBC 20.9 H (3.8-10.6) k/uL RBC 3.66 L (3.80-5.40) m/uL Neutrophils # 19.3 H (1.3-7.7) k/uL Lymphocytes # 0.7 L (1.0-4.8) k/uL Potassium 5.2 H (3.5-5.1) mmol/L BUN 24 H (7-17) mg/dL Urine Appearance Cloudy H (Clear) Urine Protein Trace H (Negative) Urine Blood Moderate H (Negative) Ur Leukocyte Esterase Large H (Negative) Urine RBC 100 H (0-5) /hpf Urine WBC 41 H (0-5) /hpf Amorphous Sediment Occasional H (None) /hpf Thrombosis Risk Factor Assmnt - Choose All That Apply Each Risk Factor Represents 3 Points: Age 75 years or older Thrombosis Risk Factor Assessment Total Risk Factor Score: 3 Thrombosis Risk Factor Assessment Level: Moderate Risk Assessment and Plan (1) Leukocytosis Current Visit: Yes Status: Acute Code(s): D72.829 - ELEVATED WHITE BLOOD CELL COUNT, UNSPECIFIED SNOMED Code(s): 242094741 (2) Constipation Current Visit: Yes Status: Acute Code(s): K59.00 - CONSTIPATION, UNSPECIFIED SNOMED Code(s): 16500150 (3) Acute urinary tract infection Current Visit: Yes Status: Acute Code(s): N39.0 - URINARY TRACT INFECTION, SITE NOT SPECIFIED SNOMED Code(s): 790752185 (4) Severe aortic stenosis Current Visit: Yes Status: Acute Code(s): I35.0 - NONRHEUMATIC AORTIC (VALVE) STENOSIS SNOMED Code(s): 37413408 (5) Hyperkalemia Current Visit: Yes Status: Acute Code(s): E87.5 - HYPERKALEMIA SNOMED Code(s): 51912405 Plan: The patient is placed in observation anticipated less than 2 midnight stay with severe constipation, initially there is a concern for acute GI bleed by history is provided by family members and appears that the bleeding from the rectum secondary to constipation, we'll plan to continue Dulcolax and MiraLAX. We'll also continue to check her hemoglobin, the patient is noted to have elevated white count but is afebrile, urinalysis suggestive of possible UTI with hematuri a and increased white cells will start on empiric antibiotics with levaquin as patient is PCN ALLERGIC . We'll order this chest x-ray blood culture with urine cultures pending. The patient is resumed on her home medications with plans to recheck her BMP in the morning as she does have mild hyperkalemia. Continue to follow her clinical course CODE STATUS: DNR/DNI Discussed plan of care with family daughter Mela SAINI Anticipated discharge 1-[address]: [facility] Prophylaxis: SCDs Time with Patient: Greater than 30
[2018-10-31] MEDS ORDERED: POLYETHYLENE GLYCOL 3350 17 GM POWD.PACK PO STA (18:19)
[2018-10-31] MEDS ORDERED: LEVOFLOXACIN 500MG-D5W PMX 500 MG in DEXTROSE/WATER 1 100ML.BAG IVPB STA (18:27)
--- NOTE | 2018-10-31 19:01 | XR ---
EXAMINATION TYPE: XR chest 2V DATE OF EXAM: 10/31/2018 COMPARISON: 10/30/2018 HISTORY: Leukocytosis TECHNIQUE: Frontal and lateral views of the chest are obtained. FINDINGS: Heart is enlarged. There is no heart failure. Lungs are clear of consolidation. Bony thora x is intact. There is some osteopenia. There is minimal thoracic kyphosis. IMPRESSION: Mild cardiomegaly. No active cardiopulmonary disease. No change.
[2018-10-31] MEDS: ATORVASTATIN 10 MG TAB PO SCH (20:51)
[2018-10-31] MEDS: METOPROLOL TARTRATE 25 MG TAB PO SCH (20:51)
[2018-10-31] MEDS: risperiDONE 1 MG TAB PO SCH (20:51)
[2018-11-01] MEDS: SODIUM CHLORIDE 0.9% 1,000 ML IV SCH ×2 (06:28→17:18)
[2018-11-01] MEDS: SERTRALINE 25 MG TAB PO SCH (09:02)
[2018-11-01] MEDS: METOPROLOL TARTRATE 25 MG TAB PO SCH ×2 (09:02→20:34)
[2018-11-01] MEDS: LORATADINE 10 MG TAB PO SCH (09:03)
[2018-11-01] MEDS: PANTOPRAZOLE 40 MG/10 ML VIAL IV SCH (09:03)
[2018-11-01] MEDS: BISACODYL 5 MG TABLET.DR PO SCH (09:03)
[2018-11-01 09:56] LABS: Basophils % (A) 0 %; Eosinophils # (A) 0.1 k/uL (0-0.7); Eosinophils % (A) 1 %; HGB 10.3 gm/dL (11.4-16.0); Hypochromasia Slight; Lymphocytes # (A) 0.9 k/uL (1.0-4.8); Lymphocytes % (A) 13 %; MCH 31.5 pg (25.0-35.0); MCHC 32.1 g/dL (31.0-37.0); MCV 98.2 fL (80.0-100.0); Monocytes # (A) 0.4 k/uL (0-1.0); Monocytes % (A) 6 %; Neutrophils # (A) 5.5 k/uL (1.3-7.7); Neutrophils % (A) 78 %; Platelet Count 211 k/uL (150-450); RBC 3.26 m/uL (3.80-5.40); RDW 14.9 % (11.5-15.5)
[2018-11-01 10:16] LABS: African American GFR (CKD) >90 (>60 ml/min/1.73 sqM); Anion Gap 8 mmol/L; Blood Urea Nitrogen 14 mg/dL (7-17); Calcium 8.8 mg/dL (8.4-10.2); Carbon Dioxide 24 mmol/L (22-30); Chloride 107 mmol/L (98-107); Glucose 111 mg/dL (74-99); Sodium 139 mmol/L (137-145)
--- NOTE | 2018-11-01 15:37 | P.PN ---
Subjective Progress Note Date: 11/01/18 Patient seen and examined at bedside doing well, apparently had a bowel movement last night and one this morning without any signs of active bleeding. Patient's appetite not the best this morning but did have her full ensure. No acute events overnight patient afebrile, Leukocytosis resolving overnight. Urine cultures are pending, potassium was also normalized without any intervention Objective - Vital Signs Vital signs: Vital Signs Temp 98.1 F 11/01/18 14:13 Pulse 74 11/01/18 14:13 Resp 16 11/01/18 14:13 BP 130/65 11/01/18 14:13 Pulse Ox 96 11/01/18 14:13 Intake & Output 10/31/18 11/01/18 11/01/18 18:59 06:59 18:59 Intake Total 60 740 Output Total 1 Balance 59 740 Weight 48.988 kg Intake: IV 740 Levofloxacin 500Mg-D5w 100 Pmx 500 mg In Dextrose/ Water 1 100ml.bag @ 100 mls/hr IVPB ONCE STA Rx#: [id number] Sodium Chloride 0.9% 1, 640 000 ml @ 80 mls/hr IV . [id number] [facility] Rx#:[id number] Oral 60 Output: Stool 1 Other: Voiding Method Bedside Commode Bedside Commode Bedside Commode Bedpan Bedpan Bedpan Incontinent Incontinent Incontinent # Voids 5 3 # Bowel Movements 1 2 - Exam Constitutional: No acute distress, conversant, pleasant Eyes: Anicteric sclerae, moist conjunctiva, no lid-lag, PERRLA ENMT: NC/AT,Oropharynx clear, no erythema, exudates Neck:Supple, FROM, no masses, or JVD, No carotid bruits; No thyromegaly Lungs: Clear to auscultation, Clear to percussion, Normal respiratory effort, no accessory muscle use Cardiovascular: Heart regular in rate and rhythm, No murmurs, gallops, or rubs no peripheral edema Abdominal: Soft Nontender, nom distended, no guarding, no rebound or rigidity, Normoactive bowel sounds No hepatomegaly, No splenomegaly, No palpable mass No abdominal wall hernia noted Skin: Normal temperature, tone, texture, turgor, No induration No subcutaneous nodules, No rash, lesions, No ulcers Extremities:No digital cyanosis No clubbing, Pedal pulses intact and symmetrical Radial pulses intact and symmetrical Normal gait and station, No calf tenderness Psychiatric: Alert and oriented to person, and situation Neuro: Muscles Strength 5/5 in all 4 extremities, Sensation to light touch grossly present throughout, Cranial nerves II-XII grossly intact. No focal sensory deficits - Labs CBC & Chem 7: 11/01/18 08:41 11/01/18 08:41 Labs: Abnormal Lab Results - Last 24 Hours (Table) 11/01/18 11/01/18 Range/Units 08:41 08:41 RBC 3.26 L (3.80-5.40) m/uL Hgb 10.3 L (11.4-16.0) gm/dL Hct 32.0 L (34.0-46.0) % Lymphocytes # 0.9 L (1.0-4.8) k/uL Glucose 111 H (74-99) mg/dL Microbiology - Last 24 Hours (Table) 10/31/18 12:55 Urine Culture - Preliminary Urine,Voided Assessment and Plan (1) Constipation Narrative/Plan: * Constipation appears improved * Continue current regimen Current Visit: Yes Status: Chronic Code(s): K59.00 - CONSTIPATION, UNSPECIFIED SNOMED Code(s): 11962729 (2) Leukocytosis Narrative/Plan: * patient afebrile, blood cultures are pending, chest x-ray showing cardiomegaly with no active cardiopulmonary disease Current Visit: Yes Status: Resolved Code(s): D72.829 - ELEVATED WHITE BLOOD CELL COUNT, UNSPECIFIED SNOMED Code(s): 646165318 (3) Acute urinary tract infection Narrative/Plan: * Urine cultures are pending * Continue Levaquin Current Visit: Yes Status: Acute Code(s): N39.0 - URINARY TRACT INFECTION, SITE NOT SPECIFIED SNOMED Code(s): 871212049 (4) Hyperkalemia Narrative/Plan: * Resolved without any temporizing measures Current Visit: Yes Status: Acute Code(s): E87.5 - HYPERKALEMIA SNOMED Code(s): 67540990 (5) Severe aortic stenosis Current Visit: Yes Status: Resolved Code(s): I35.0 - NONRHEUMATIC AORTIC (VALVE) STENOSIS SNOMED Code(s): 75096063 Plan: * Patient is doing well today awaiting urine cultures that should be back by tomorrow * Anticipated discharge then
[2018-11-01] MEDS ORDERED: LEVOFLOXACIN 500MG-D5W PMX 500 MG in DEXTROSE/WATER 1 100ML.BAG IVPB SCH (19:00)
[2018-11-01] MEDS: ATORVASTATIN 10 MG TAB PO SCH (20:34)
[2018-11-01] MEDS: risperiDONE 1 MG TAB PO SCH (20:34)
[2018-11-02 05:24] VITALS: RESP 16; TEMP 97.6
[2018-11-02] MEDS: SODIUM CHLORIDE 0.9% 1,000 ML IV SCH (05:45)
[2018-11-02 08:39] LABS: Basophils % (A) 1 %; Eosinophils # (A) 0.1 k/uL (0-0.7); Eosinophils % (A) 2 %; HCT 37.6 % (34.0-46.0); HGB 11.5 gm/dL (11.4-16.0); Hypochromasia Slight; Lymphocytes # (A) 1.4 k/uL (1.0-4.8); Lymphocytes % (A) 19 %; MCH 31.2 pg (25.0-35.0); MCHC 30.5 g/dL (31.0-37.0); Macrocytosis Slight; Mean Platelet Volume 7.1; Monocytes # (A) 0.4 k/uL (0-1.0); Monocytes % (A) 5 %; Neutrophils % (A) 71 %; Platelet Count 212 k/uL (150-450); RBC 3.68 m/uL (3.80-5.40); RDW 13.9 % (11.5-15.5)
[2018-11-02] MEDS: SERTRALINE 25 MG TAB PO SCH (08:54)
[2018-11-02 08:55] VITALS: BP 131/64; PULSE 70
[2018-11-02] MEDS: LORATADINE 10 MG TAB PO SCH (08:55)
[2018-11-02] MEDS: METOPROLOL TARTRATE 25 MG TAB PO SCH (08:55)
[2018-11-02] MEDS: PANTOPRAZOLE 40 MG/10 ML VIAL IV SCH (08:55)
[2018-11-02] MEDS: BISACODYL 5 MG TABLET.DR PO SCH (08:55)
--- NOTE | 2018-11-02 10:22 | P.DS ---
Providers Date of admission: 10/31/18 14:57 Expected date of discharge: 11/02/18 Attending physician: Alfa Gary MD Primary care physician: Mario Lay - Discharge Diagnosis(es) (1) Constipation Current Visit: Yes Status: Chronic (2) Blood in stool Current Visit: Yes Status: Acute (3) Leukocytosis Current Visit: Yes Status: Resolved (4) Hyperkalemia Current Visit: Yes Status: Acute (5) Severe aortic stenosis Current Visit: Yes Status: Resolved (6) Asymptomatic bacteriuria Current Visit: Yes Status: Acute Hospital Course: Patient is an 86-year-old female with a past medical history dementia, hypertension, dyslipidemia, and coronary artery disease status post stenting, history of severe aortic stenosis who presented from assisted living with her daughter via private vehicle with chief complaint of severe constipation with blood on the toilet paper, she was placed in observation status for concern by the ER physician for acute GI bleed despite having a normal hemoglobin on presentation. On Admission she had a pronounced leukocytosis of 20.9 and a serum potassium of 5.2 both of which resolved on lab recheck. She was placed on empiric IV antibiotics with Levaquin for presumptive UTI, urine cultures were ordered and grew apparent skin and genital flaquito and her antibiotics were subsequently discontinued. The patient is placed on a bowel regimen of Dulcolax and MiraLAX and moved her bowels without any further rectal bleeding due to constipation. She was subsequently discharged back to assisted living in stable condition. This discharge process took approximately 30 minutes. Focused exam Abdominal: Soft nontender nondistended and normoactive bowel sounds no upper quadrant Patient Condition at Discharge: Good Plan - Discharge Summary New Discharge Prescriptions: New Bisacodyl [Dulcolax] 5 mg PO DAILY #30 tablet.dr Continue Clopidogrel [Plavix] 75 mg PO DAILY tab Atorvastatin [Lipitor] 10 mg PO HS Omeprazole [PriLOSEC] 20 mg PO DAILY Aspirin 81 mg PO DAILY #30 chew Metoprolol Tartrate [Lopressor] 25 mg PO BID #60 tab Sertraline [Zoloft] 25 mg PO DAILY Desloratadine 5 mg PO DAILY risperiDONE 1 mg PO HS Discharge Medication List Clopidogrel [Plavix] 75 mg PO DAILY tab 03/28/16 [Rx] Atorvastatin [Lipitor] 10 mg PO HS 05/02/16 [History] Omeprazole [PriLOSEC] 20 mg PO DAILY 07/30/16 [History] Aspirin 81 mg PO DAILY #30 chew 04/26/17 [Rx] Metoprolol Tartrate [Lopressor] 25 mg PO BID #60 tab 04/26/17 [Rx] Desloratadine 5 mg PO DAILY 07/12/18 [History] Sertraline [Zoloft] 25 mg PO DAILY 07/12/18 [History] risperiDONE 1 mg PO HS 10/31/18 [History] Bisacodyl [Dulcolax] 5 mg PO DAILY #30 tablet. 11/02/18 [Rx] Follow up Appointment(s)/Referral(s): [facility], [NON-STAFF] - Mario Lay MD [Primary Care Provider] - 1-2 days (Please call and schedule appointment on Sunday when office is open) Patient Instructions/Handouts: Urinary Tract Infection in Women (DC), Anemia (DC) Activity/Diet/Wound Care/Special Instructions: ACTIVITY TOLERATED
== END 2018-11-02 10:16 | disposition home health service (06) ==
LOC: EC 11:52 → 4MS4W 14:57
PROVIDERS: ADMIT Family Medicine; ATTEND Family Medicine
DX: K59.00 Constipation, unspecified (principal); K92.1 Melena; D72.829 Elevated white blood cell count, unspecified; E87.5 Hyperkalemia; I35.0 Nonrheumatic aortic (valve) stenosis; F03.90 Unspecified dementia, unspecified severity, without behavioral disturbance, psychotic disturbance, mood disturbance, and anxiety; E78.5 Hyperlipidemia, unspecified; I10 Essential (primary) hypertension; I25.10 Atherosclerotic heart disease of native coronary artery without angina pectoris; R32 Unspecified urinary incontinence; K21.9 Gastro-esophageal reflux disease without esophagitis; M15.9 Polyosteoarthritis, unspecified; E86.0 Dehydration; D64.9 Anemia, unspecified; R31.9 Hematuria, unspecified; R62.7 Adult failure to thrive; Z68.20 Body mass index [BMI] 20.0-20.9, adult; S30.817A Abrasion of anus, initial encounter; Z95.5 Presence of coronary angioplasty implant and graft; H91.90 Unspecified hearing loss, unspecified ear; H91.93 Unspecified hearing loss, bilateral; Z97.4 Presence of external hearing-aid; Z87.440 Personal history of urinary (tract) infections; Z90.49 Acquired absence of other specified parts of digestive tract; Z87.891 Personal history of nicotine dependence; Z82.49 Family history of ischemic heart disease and other diseases of the circulatory system; Z82.3 Family history of stroke; Z79.02 Long term (current) use of antithrombotics/antiplatelets; Z79.899 Other long term (current) drug therapy; Z79.82 Long term (current) use of aspirin; Z88.5 Allergy status to narcotic agent; Z88.0 Allergy status to penicillin; Z88.2 Allergy status to sulfonamides; Z88.6 Allergy status to analgesic agent; Z66 Do not resuscitate
CPT/HCPCS: 96376; 96361 ×2; 96365; 96366; 96375; 99285; 36415; 86900; 86901; 80053; 80048; 82550; 84484; 85025 ×3; 85730; 86850; 82272; 81001; 87040; 87086; 71046; G0378 ×3; J1956 ×2; C9113 ×2